=== PATIENT | male | born 1990 | race African-American/Black ===

== ENCOUNTER 2016-12-17 20:24 | Emergency (ER) | payer OTHER ==
[2016-12-17 21:10] LABS: BASO % 0.4 % (0.0-1.0); EOS % 0.2 % (0.0-3.0); LARGE UNSTAINED CELL # 0.1 K/mm3 (0.0-0.4); LARGE UNSTAINED CELL % 1.5 % (0.0-4.0); LYMPH # 3.1 K/mm3 (1.5-6.5); LYMPH % 44.9 % (24.0-44.0); MEAN CORPUSCULAR HGB CONC 34.4 g/dl (32.0-36.5); MEAN CORPUSCULAR VOLUME 81.2 fl (80.0-96.0); MONO # 0.3 K/mm3 (0.0-0.8); NEUTROPHILS # 3.4 K/mm3 (1.8-7.7); PLATELET COUNT, AUTOMATED 286 k/mm3 (150-450); RED CELL DISTRIBUTION WIDTH 12.7 % (11.5-14.5); WHITE BLOOD COUNT 6.9 K/mm3 (4.0-10.0)
[2016-12-17] MEDS ORDERED: LORazepam 2 MG/ML VIAL (J2060) As Ordered ONE (21:29)
[2016-12-17 21:30] LABS: AMPHETAMINES LEVEL URINE NEGATIVE (NEGATIVE); BENZODIAZEPINES URINE NEGATIVE (NEGATIVE); COCAINE METABOLITE URINE NEGATIVE (NEGATIVE); CONTROL LINE INT CTR LINE PRESENT; METHADONE URINE NEGATIVE (NEGATIVE); OPIATES URINE NEGATIVE (NEGATIVE); TRICYCLIC ANTIDEPRESS URINE NEGATIVE (NEGATIVE)
[2016-12-17 21:43] LABS: ANION GAP 10 MEQ/L (8-16); BLOOD UREA NITROGEN 11 MG/DL (7-18); CALCIUM LEVEL 9.2 MG/DL (8.5-10.1); CARBON DIOXIDE LEVEL 24 MEQ/L (21-32); CHLORIDE LEVEL 107 MEQ/L (98-107); CREATININE FOR GFR 1.25 MG/DL (0.70-1.30); FREE T4 1.05 NG/DL (0.76-1.46); GLOMERULAR FILTRATION RATE > 60.0 (>60); GLUCOSE, FASTING 105 MG/DL (70-105); POTASSIUM SERUM 3.3 MEQ/L (3.5-5.1); SODIUM LEVEL 141 MEQ/L (136-145)
[2016-12-17] MEDS ORDERED: POTASSIUM CHLORIDE 10 MEQ SR TABLET As Ordered ONE (21:56)
[2016-12-17] MEDS ORDERED: LISINOPRIL 10 MG TAB As Ordered ONE ×2 (21:56→22:48)
--- NOTE | 2016-12-17 22:10 | REPUSA ---
CLINICAL HISTORY: HTN. TECHNIQUE: Multiple axial brain CT scan sections were obtained from base to vertex without contrast a dministration. COMMENTS: The study shows normal configuration of sella turcica. There are no intra or extra-axial collections. There is no mass effect or midline shift. There is no evidence of hematoma formation. No hydrocephal us is present. No abnormal calcifications are noted. No significant abnormalities are seen either in the posterior fossa or supratentorial compartment. The sinuses and mastoid air cells are patent. IMPRESSION: No evidence of acute intracranial pathology. Thank you for your kind referral of this patient.
--- NOTE | 2016-12-17 22:58 | EDDOCDS ---
Physician Documentation [facility] Name: Martin Watson Age: 26 yrs Sex: Male : 1990 Arrival Date: 12/17/2016 Time: 20:24 Bed 17 Private MD: [facility] [place] Disposition: 12/17 22:32 Critical Care: Critical care not applicable. pc Disposition: 12/17/16 22:33 Discharged to Home/Self Care. Impression: Anxiety disorder, unspecified, Essential (primary) hypertension, Hypokalemia - mild, replaced. - Condition is Stable. - Discharge Instructions: Panic Attacks, Hypertension. - Prescriptions for Lisinopril 10 mg Oral Tablet - take 1 tablet by ORAL route at bedtime; 30 tablet. - Medication Reconciliation, Local Pharmacy Hours form. - Follow up: [facility]; When: 2 - 3 days; Reason: Recheck today's complaints, Continuance of care. - Problem is new. - Symptoms have improved. HPI: 20:56 This 26 yrs old Male presents to ER via Ambulance with complaints of pc Dizziness. 20:56 This 26 yrs old Male presents to ER via Ambulance with complaints of pc Dizziness. 20:56 The history is obtained from the patient. He says he is having an anxiety attack, that pc his BP is running high, he has dizziness chronically that is worse tonight and is hyperventilating, stating he feels his hands going numb. He has been told he has hypertension on the past by his PCP at [place] but has never been told to take meds. His only other visis to this ED in April 2016 he was noted to be hypertensive as well. He denies any chest pain, headaches, visual changes. He denies drug use or OTC usage. He says there is hypertension at an early age in his parents. The patient has not recently seen a physician. Historical: - Allergies: Amoxicillin; Bactrim; SULFA (SULFONAMIDES); - Home Meds: 1. Lexapro 10 mg Oral tab 1 tab once daily 2. prednisone 20 mg Oral tab 2 tabs once daily x5 days - PMHx: Bronchitis; Seasonal Allergies; Anxiety; - PSHx: left shoulder surgery; - The history from nurses notes was reviewed: and I agree with what is documented. - Social history: Smoking status: Patient states was never smoker of tobacco. No barriers to communication noted, The patient speaks fluent Latvian. - : The pt / caregiver states he / she is not on anticoagulants. Home medication list is obtained from the patient. - Hospitalizations: : No recent hospitalization is reported. - Exposure Risk Screening:: None identified. - Immunization history:: All immunizations up-to-date. - Family history: Not pertinent. - Social history:: the patient is a non-smoker, the patient does not drink alcohol. ROS: 20:56 All systems are negative except as listed. pc Exam: 20:56 General Appearance: no acute distress, alert, anxious. pc 20:56 EENT: normal eye inspection, ears, nose and throat normal, pharynx normal, mucous membranes moist 20:56 Neck: The exam reveals no acute abnormalities. ROM is normal and painless. No nuchal rigidity is noted.. 20:56 Respiratory: no respiratory distress, normal breath sounds, Respirations/effort: tachypnea. 20:56 CVS: regular pulse rate, regular rhythm, normal S1 and S2, no murmurs, strong peripheral pulses, normal capillary refill. 20:56 Abdomen: soft, non-tender, no organomegaly, normal bowel sounds. 20:56 Back: normal inspection. 20:56 Skin: skin color is normal, warm, dry, no rashes, no lesions. 20:56 Extremities: The extremities have a grossly normal appearance, are non-tender, without acute ROM abnormalities. 20:56 Neuro: oriented x 3, cranial nerves normal as tested, no motor deficits, no sensory deficits, normal gait. 20:56 Psych: mood is depressed, affect is flat. Vital Signs: 20:41 BP 178 / 103; Pulse 76; Resp 20; Temp 97.8(O); Pulse Ox 100% on R/A; Weight 107.95 kg / jmv 237.99 lbs (R); Height 69 in. (175.26 cm) (R); Pain 0/10; 21:29 BP 139 / 80 (auto/); pc 21:43 BP 142 / 91 (auto/); af2 21:43 Pulse 72 MON; Resp 18 S; Pulse Ox 98% on R/A; af2 22:36 BP 135 / 79; Pulse 73; Resp 18; Temp 98.3(O); Pulse Ox 95% on R/A; Pain 4/10; mdr 20:41 Body Mass Index 35.15 (107.95 kg, 175.26 cm) jmv 20:41 RN notified of BP jmv MDM: 20:54 IV Saline Lock ordered. pc 20:54 Information Security Officer/Pulse Ox/q 30 min VS ordered. pc 20:54 LORazepam 1 mg IVP once ordered. pc 20:55 CBC with Diff Ordered. EDMS 20:55 MED Profile Ordered. EDMS 20:55 TSH with Free T4 Ordered. EDMS 20:55 Drug Eval Toxicology ED Only Ordered. EDMS 20:55 Urinalysis Ordered. EDMS 20:55 CIP Ordered. EDMS 20:55 Troponin Ordered. EDMS 20:56 Chest, 1 View Ordered. EDMS 20:56 ECG WITH READING ER PHYS+CARDIAG ordered. EDMS 20:56 CT Head Without Contrast Ordered. EDMS 20:56 Differential Diagnosis: anxiety attack, hypertension, possibly anxiety related v pc essential. Plan: labs, EKG, imaging, meds. 21:31 CBC with Diff Reviewed. pc 21:31 Urinalysis Reviewed. pc 21:39 Test interpretation: EKG. pc 21:41 Drug Eval Toxicology ED Only Reviewed. pc 21:41 Urinalysis Reviewed. pc 21:45 Financial registration complete. zo 21:48 MED Profile Reviewed. pc 21:48 Troponin Reviewed. pc 21:48 Potassium Chloride Extended Release Tablet 40 mEq PO once ordered. pc 21:49 CIP Reviewed. pc 21:49 TSH with Free T4 Reviewed. pc 21:50 Lisinopril 10 mg PO once ordered. pc 21:56 MED Profile Reviewed. pc 21:56 TSH with Free T4 Reviewed. pc 21:56 CIP Reviewed. pc 21:56 Troponin Reviewed. pc 22:04 [facility] [place] Agreement was scanned into [employer] and attached to record. zo 22:32 Data reviewed: old medical records, vital signs, nurses notes, EKG(s), lab test pc results, all radiology studies and available results. Test interpretation: LAB - all labs as ordered have been reviewed, interpreted and considered in the overall management of the clinical presentation; X-RAY - interpreted by me, 1 view chest no acute disease, interpreted by Radiologist and personally reviewed, Head CT; no acute disease. The patient has been re-examined and re-evaluated. The patient's symptoms have markedly improved after treatment, with his BP 142/91 with only anxiolytics. Disposition: The historical points, examination findings, and any diagnostic results supporting the provided diagnosis, were discussed with the patient or legal guardian. The need for outpatient follow up with the provider listed on their discharge instructions was discussed. They were encouraged to return to [facility], or the nearest ED, if symptoms worsen/persist, or for any other questions/concerns. EC:39 Rate is 67 beats/min. Rhythm is regular, Normal Sinus Rhythm. QRS [place] is Normal. NV pc interval is normal. QRS interval is normal. QT interval is normal. No Q waves. T waves are Normal. ST Segment is elevated in leads I, II, aVL, V2, V3, V4, V5, V6, <1mm. Clinical impression: Normal Sinus Rhythm and ST-T changes consistent with early repolarization. Administered Medications: 21:32 Drug: LORazepam 1 mg [lorazepam 2 mg/mL injection solution (0.5 mL)] Route: IVP; Site: nn1 left antecubital; 22:01 Drug: Potassium Chloride 40 mEq [potassium chloride ER 10 mEq tablet,extended release af2 (4 tabs)] Route: PO; 22:01 Drug: Lisinopril 10 mg [lisinopril 10 mg tablet (1 tabs)] Route: PO; af2 Signatures: Dispatcher [employer] EDMS Ham Parnell MD MD pc Olin, Zoeann zo [place]ulton, Amber, RN RN af2 Donn Crooks RN nn1 The chart was reviewed and I authenticate all verbal orders and agree with the evaluation and treatment provided.Attachments: 22:04 [facility] Payment Agreement zo MTDD
--- NOTE | 2016-12-17 22:59 | EDDOCDS ---
Nurse's Notes [facility] Name: Martin Watson Age: 26 yrs Sex: Male : 1990 Arrival Date: 12/17/2016 Time: 20:24 Bed 17 Private MD: Orly BORGES Diagnosis: Anxiety disorder, unspecified;Essential (primary) hypertension;Hypokalemia-mild, replaced Presentation: 12/17 20:31 Presenting complaint: EMS states: lightheaded and dizziness, constant problem- far kas2 worse than normal today. Suicide/Homicide risk assessment- the patient denies having any suicidal and/or homicidal ideations and does not present with any other emotional, behavioral or mental health complaints. 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 Transition of care: patient was not received from another setting of care. 20:31 Acuity: LONA Level 3 kas2 20:31 Method Of Arrival: Ambulance kas2 22:58 Adult Sepsis Screening: The patient does not have new or worsening altered mentation. af2 Patient's respiratory rate is less than 22. Systolic blood pressure is greater than 100. Patient has a qSOFA score of 0- Negative Sepsis Screen. Triage Assessment: 20:35 General: Appears in no apparent distress, comfortable, Behavior is appropriate for age, af2 cooperative. Pain: Denies pain. HIV screening NA for this visit Offered previously. The patient is triaged at the bedside. See Assessment in Nurses Notes section of ED record. Neurological: Level of Consciousness is awake, alert, obeys commands, Oriented to person, place, time, Reports dizziness, weakness. Cardiovascular: Heart tones S1 S2 present. Respiratory: Airway is patent Respiratory effort is even, unlabored. Derm: Skin is normal. Historical: - Allergies: Amoxicillin; Bactrim; SULFA (SULFONAMIDES); - Home Meds: 1. Lexapro 10 mg Oral tab 1 tab once daily 2. prednisone 20 mg Oral tab 2 tabs once daily x5 days - PMHx: Bronchitis; Seasonal Allergies; Anxiety; - PSHx: left shoulder surgery; - The history from nurses notes was reviewed: and I agree with what is documented. - Social history: Smoking status: Patient states was never smoker of tobacco. No barriers to communication noted, The patient speaks fluent Croatian. - : The pt / caregiver states he / she is not on anticoagulants. Home medication list is obtained from the patient. - Hospitalizations: : No recent hospitalization is reported. - Exposure Risk Screening:: None identified. - Immunization history:: All immunizations up-to-date. - Family history: Not pertinent. - Social history:: the patient is a non-smoker, the patient does not drink alcohol. Screenin:49 Screening information is obtained from the patient. Fall risk: No risks identified. af2 Assistance ADL's: requires no assistance with activities of daily living. Abuse/DV Screen: The patient / caregiver reports he/she is: not in a situation that causes fear, pain or injury. Nutritional screening: No deficits noted. Advance Directives: Currently, there is no health care proxy. home support is adequate. Assessment: 21:49 General: Appears in no apparent distress, Behavior is cooperative. Neurological: Level af2 of Consciousness is awake, alert, obeys commands, Oriented to person, place, time. Cardiovascular: Rhythm is sinus rhythm No ectopy. Respiratory: Airway is patent Respiratory effort is even, unlabored. Derm: Skin is normal. 22:04 General: pt states "I forgot to tell you I'm taking Prednisone for a rash right now." af2 Provider updated.. 22:56 General: Appears in no apparent distress, Behavior is appropriate for age, cooperative. af2 Neurological: Level of Consciousness is awake, alert, obeys commands, Oriented to person, place, time. Cardiovascular: Rhythm is sinus rhythm No ectopy. Respiratory: Airway is patent Respiratory effort is even, unlabored. Derm: Skin is normal. Vital Signs: 20:41 BP 178 / 103; Pulse 76; Resp 20; Temp 97.8(O); Pulse Ox 100% on R/A; Weight 107.95 kg jmv (R); Height 69 in. (175.26 cm) (R); Pain 0/10; 21:29 BP 139 / 80 (auto/); pc 21:43 BP 142 / 91 (auto/); af2 21:43 Pulse 72 MON; Resp 18 S; Pulse Ox 98% on R/A; af2 22:36 BP 135 / 79; Pulse 73; Resp 18; Temp 98.3(O); Pulse Ox 95% on R/A; Pain 4/10; mdr 20:41 Body Mass Index 35.15 (107.95 kg, 175.26 cm) jmv 20:41 RN notified of BP jmv Vitals: 20:37 Log In Time N/A - ambulance arrival. af2 ED Course: 20:28 Pepper Mata RN is Primary Nurse. [facility] 20:28 Patient visited by Rosetta Rangel, Electronic Transaction Implementer. [facility] 20:28 [facility] is Private Physician. [facility] 20:28 Patient moved to [facility] 20:32 Triage Initiated kas2 20:37 Patient visited by Pepper Mata RN. af2 20:42 Pt greeted and oriented to ED. Patient advised of names of staff involved in care, [facility] location of call jack, wait times and NPO status. Patient has correct armband on for positive identification. Placed in gown. Bed in low position. Side rails up X2. aquatic director on. Pulse ox on. NIBP on. 20:43 Patient visited by Bull Winn PCA. jmv 20:48 Ham Parnell MD is Attending Physician. pc 20:52 Patient visited by Ham Parnell MD. pc 21:04 Patient visited by Bull Winn PCA. jmv 21:04 Troponin Sent. jmv 21:04 CIP Sent. jmv 21:04 Urinalysis Sent. jmv 21:04 Drug Eval Toxicology ED Only Sent. jmv 21:04 TSH with Free T4 Sent. jmv 21:04 MED Profile Sent. jmv 21:04 CBC with Diff Sent. jmv 21:35 EKG done. (by ED staff). Reviewed by Ham Parnell MD. jmv 21:36 Patient visited by Bull Winn PCA. jmv 21:50 Patient visited by Pepper Mata RN. af2 22:04 [facility] Payment Agreement was scanned into [employer] and attached to record. zo 22:05 Patient visited by Pepper Mata RN. af2 22:33 [facility] is Referral Physician. pc 22:39 Patient visited by Juan Carlos Martinez PCA. mdr 22:56 Maintain field IV. Dressing intact. Good blood return noted. Gauge & site: #20G to left af2 ac. No procedures done that require assistance. 22:57 Discontinued IV lock intact, bleeding controlled, pressure dressing applied, No af2 redness/swelling at site. 22:58 The patient / caregiver is instructed regarding the plan of care and ED course. af2 Administered Medications: 21:32 Drug: LORazepam 1 mg [lorazepam 2 mg/mL injection solution (0.5 mL)] Route: IVP; Site: nn1 left antecubital; 22:01 Drug: Potassium Chloride 40 mEq [potassium chloride ER 10 mEq tablet,extended release af2 (4 tabs)] Route: PO; 22:01 Drug: Lisinopril 10 mg [lisinopril 10 mg tablet (1 tabs)] Route: PO; af2 Order Results: Lab Order: CBC with Diff; SPEC'M 12/17/16 21:01 Test: WHITE BLOOD COUNT; Value: 6.9; Range: 4.0-10.0; Units: K/mm3; Status: F Test: RED BLOOD COUNT; Value: 5.64; Range: 4.30-6.10; Units: M/mm3; Status: F Test: HEMOGLOBIN; Value: 15.8; Range: 14.0-18.0; Units: g/dl; Status: F Test: HEMATOCRIT; Value: 45.8; Range: 42.0-52.0; Units: %; Status: F Test: MEAN CORPUSCULAR VOLUME; Value: 81.2; Range: 80.0-96.0; Units: fl; Status: F Test: MEAN CORPUSCULAR HEMOGLOBIN; Value: 28.0; Range: 27.0-33.0; Units: pg; Status: F Test: MEAN CORPUSCULAR HGB CONC; Value: 34.4; Range: 32.0-36.5; Units: g/dl; Status: F Test: RED CELL DISTRIBUTION WIDTH; Value: 12.7; Range: 11.5-14.5; Units: %; Status: F Test: PLATELET COUNT, AUTOMATED; Value: 286; Range: 150-450; Units: k/mm3; Status: F Test: NEUTROPHILS %; Value: 49.0; Range: 36.0-66.0; Units: %; Status: F Test: LYMPH %; Value: 44.9; Range: 24.0-44.0; Abnormal: Above high normal; Units: %; Status: F Test: MONO %; Value: 4.0; Range: 0.0-5.0; Units: %; Status: F Test: EOS %; Value: 0.2; Range: 0.0-3.0; Units: %; Status: F Test: BASO %; Value: 0.4; Range: 0.0-1.0; Units: %; Status: F Test: LARGE UNSTAINED CELL %; Value: 1.5; Range: 0.0-4.0; Units: %; Status: F Test: NEUTROPHILS #; Value: 3.4; Range: 1.8-7.7; Units: K/mm3; Status: F Test: LYMPH #; Value: 3.1; Range: 1.5-6.5; Units: K/mm3; Status: F Test: MONO #; Value: 0.3; Range: 0.0-0.8; Units: K/mm3; Status: F Test: EOS #; Value: 0.0; Range: 0.0-0.50; Units: K/mm3; Status: F Test: BASO #; Value: 0.0; Range: 0.0-0.2; Units: K/mm3; Status: F Test: LARGE UNSTAINED CELL #; Value: 0.1; Range: 0.0-0.4; Units: K/mm3; Status: F Lab Order: [facility]; [facility]'M 12/17/16 21:01 Test: GLUCOSE, FASTING; Value: 105; Range: 70-105; Units: MG/DL; Status: F Test: BLOOD UREA NITROGEN; Value: 11; Range: 7-18; Units: MG/DL; Status: F Test: CREATININE FOR GFR; Value: 1.25; Range: 0.70-1.30; Units: MG/DL; Status: F Test: GLOMERULAR FILTRATION RATE; Value: > 60.0; Range: >60; Status: F Test: SODIUM LEVEL; Value: 141; Range: 136-145; Units: MEQ/L; Status: F Test: POTASSIUM SERUM; Value: 3.3; Range: 3.5-5.1; Abnormal: Below low normal; Units: MEQ/L; Status: F Test: CHLORIDE LEVEL; Value: 107; Range: 98-107; Units: MEQ/L; Status: F Test: CARBON DIOXIDE LEVEL; Value: 24; Range: 21-32; Units: MEQ/L; Status: F Test: ANION GAP; Value: 10; Range: 8-16; Units: MEQ/L; Status: F Test: CALCIUM LEVEL; Value: 9.2; Range: 8.5-10.1; Units: MG/DL; Status: F Test Note: ; Units are mL/min/1.73 m2 Chronic Kidney Disease Staging per NKF: Stage I & II GFR >=60 Normal to Mildly Decreased Stage III GFR 30-59 Moderately Decreased Stage IV GFR 15-29 Severely Decreased Stage V GFR <15 Very Little GFR Left ESRD GFR <15 on HANDSTITCHING MACHINE ARMHOLE FELLER Lab Order: TSH with Free T4; SPEC'M 12/17/16 21:01 Test: THYROID STIMULATING HORMONE; Value: 0.616; Range: 0.358-3.740; Units: uIU/ML; Status: F Test: FREE T4; Value: 1.05; Range: 0.76-1.46; Units: NG/DL; Status: F Lab Order: Drug Eval Toxicology ED Only; SPEC'M 12/17/16 21:01 Test: AMPHETAMINES LEVEL URINE; Value: NEGATIVE; Range: NEGATIVE; Status: F Test: BARBITURATES URINE; Value: NEGATIVE; Range: NEGATIVE; Status: F Test: BENZODIAZEPINES URINE; Value: NEGATIVE; Range: NEGATIVE; Status: F Test: CANNABINOIDS URINE; Value: NEGATIVE; Range: NEGATIVE; Status: F Test: COCAINE METABOLITE URINE; Value: NEGATIVE; Range: NEGATIVE; Status: F Test: METHADONE URINE; Value: NEGATIVE; Range: NEGATIVE; Status: F Test: OPIATES URINE; Value: NEGATIVE; Range: NEGATIVE; Status: F Test: TRICYCLIC ANTIDEPRESS URINE; Value: NEGATIVE; Range: NEGATIVE; Status: F Test Note: ; ALL PRESUMPTIVE POSITIVE FINDINGS ARE UNCONFIRMED NORMAL VALUES THRESHOLD IN NG/ML AMPHETAMINES 1000 METHAMPHETAMINES 1000 BARBITURATES 300 BENZODIAZEPINES 300 CANNABINOIDS (THC) 50 COCAINE METABOLITE 300 METHADONE 300 OPIATES 300 PHENCYCLIDINE 25 TRICYCLIC ANTIDEPRESSANTS 1000 RESULTS ARE FOR MEDICAL PURPOSES ONLY. ALL URINE SPECIMENS WILL BE SAVED FOR 3 DAYS. IF CONFIRMATION OF A PRESUMPTIVE POSTIVE SCREEN RESULT IS DESIRED, CALL CHEMISTRY ([phone]) AND REQUEST URINE TO BE SENT TO REFERENCE LAB. FOR A LIST OF CLOSELY RELATED COMPOUNDS PLEASE CALL THE LAB. Lab Order: Urinalysis; SPEC'M 12/17/16 21:01 Test: APPEARANCE, URINE; Value: CLEAR; Range: CLEAR; Status: F Test: COLOR, URINE; Value: STRAW; Range: YELLOW; Status: F Test: PH,URINE; Value: 6.0; Range: 5.0-9.0; Units: UNITS; Status: F Test: SPECIFIC GRAVITY URINE AUTO; Value: 1.003; Range: 1.002-1.035; Status: F Test: PROTEIN, URINE AUTO; Value: NEGATIVE; Range: NEGATIVE; Units: mg/dL; Status: F Test: GLUCOSE, URINE (UA) AUTO; Value: NEGATIVE; Range: NEGATIVE; Units: mg/dL; Status: F Test: KETONE, URINE AUTO; Value: NEGATIVE; Range: NEGATIVE; Units: mg/dL; Status: F Test: UROBILINOGEN, URINE AUTO; Value: 0.2; Range: 0.0-2.0; Units: mg/dL; Status: F Test: BILIRUBIN, URINE AUTO; Value: NEGATIVE; Range: NEGATIVE; Status: F Test: NITRITE, URINE AUTO; Value: NEGATIVE; Range: NEGATIVE; Status: F Test: LEUKOCYTE ESTERASE, URINE AUTO; Value: NEGATIVE; Range: NEGATIVE; Status: F Test: BLOOD, URINE BLOOD; Value: NEGATIVE; Range: NEGATIVE; Status: F Test: WBC, URINE AUTO; Value: 1; Range: 0-3; Units: /HPF; Status: F Test: RBC, URINE AUTO; Value: 0; Range: 0-3; Units: /HPF; Status: F Test: BACTERIA, URINE AUTO; Value: NEGATIVE; Range: NEGATIVE; Status: F Test: SQUAMOUS EPITHELIAL CELL UR AU; Value: 0; Range: 0-6; Units: /HPF; Status: F Test: HYALINE CAST, URINE AUTO; Value: 0; Range: 0-1; Units: /LPF; Status: F Lab Order: CIP; SPEC'M 12/17/16 21:01 Test: CPK CREATINE PHOSPHOKINASE; Value: 261; Range: 39-308; Units: U/L; Status: F Test: CK-MB VALUE MASS; Value: 1.9; Range: 0.0-3.6; Units: NG/ML; Status: F Test: MB/CK RELATIVE INDEX; Value: 0.72; Range: < OR =4; Status: F Test Note: ; DIAGNOSIS CRITERIA MMB ng/ml Relative Index (RI) NON-AMI < or = 5 N/A HUIZAR ZONE > 5 < or = 4 AMI > 5 > 4 Lab Order: Troponin; [facility] 12/17/16 21:01 Test: TROPONIN I; Value: < 0.02; Range: < 0.10; Units: NG/ML; Status: F Test Note: ; Troponin I Reference Interval for [employer] LOCI: 99th Percentile= 0.00-0.045 ng/ml Risk Stratification: <= 0.10 ng/ml Decreased Risk for Adverse Clinical Events. 0.10-1.50 ng/ml Increased Risk for Adverse Clinical Events. Evaluation of additional criterion and/or repeat testing in 2-6 hours is suggested to rule out myocardial damage. >= 1.50 ng/ml Indicative of Myocardial Injury. Outcome: 22:33 Discharge ordered by Provider. pc 22:57 Discharge Assessment: Patient awake, alert and oriented x 3. No cognitive and/or af2 functional deficits noted. Patient verbalized understanding of disposition instructions. patient administered narcotics - no. The following High Risk Discharge criteria are identified: None. Discharged to home ambulatory. Condition: stable. Discharge instructions given to patient, Instructed on discharge instructions, follow up and referral plans. medication usage, Demonstrated understanding of instructions, medications, Pt was receptive of discharge instructions/ teaching. CT Study completed. Property :Personal belongings accompany Pt. 22:58 Patient left the ED. af2 Signatures: Ham Parnell MD MD pc Olin, Zoeann zo Mitchell, Jessie, Electronic Transaction Implementer Unit Pepper Elias,KEN RN af2 Donn CrooksRN RN nn1 Juan Carlos Martinez, BLACK PULLER BLACK PULLER Marlee Damico RN RN iain2 Bull Winn, BLACK PULLER BLACK PULLER jmv MTDD
--- NOTE | 2016-12-18 06:35 | ECGEPIP ---
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
--- NOTE | 2016-12-18 13:49 | REP ---
AP PORTABLE CHEST: 12/17/2016. Comparison: Chest x-ray 04/23/2016. Clinical history: Hypertension. Findings: The lung [place] are well inflated. There was no pleural effusion, lateral pleural thickening or dense consolidation. Heart size not enlarged for portable technique. Airway midline. The aorta is normal. No mediastinal or hilar abnormalities. Bones intact. Impression: 1. Negative portable chest. Signed by Daniel Gr MD 12/18/2016 07:22 P
--- NOTE | 2016-12-19 23:59 | EDDOCDS ---
Nurse's Notes [facility] Name: Martin Orozco Age: 26 yrs Sex: Male : 1990 Arrival Date: 12/17/2016 Time: 20:24 Bed 17 Private MD: Orly BORGES Diagnosis: Anxiety disorder, unspecified;Essential (primary) hypertension;Hypokalemia-mild, replaced Presentation: 12/17 20:31 Presenting complaint: EMS states: lightheaded and dizziness, constant problem- far kas2 worse than normal today. Suicide/Homicide risk assessment- the patient denies having any suicidal and/or homicidal ideations and does not present with any other emotional, behavioral or mental health complaints. 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 Transition of care: patient was not received from another setting of care. 20:31 Acuity: LONA Level 3 kas2 20:31 Method Of Arrival: Ambulance kas2 22:58 Adult Sepsis Screening: The patient does not have new or worsening altered mentation. af2 Patient's respiratory rate is less than 22. Systolic blood pressure is greater than 100. Patient has a qSOFA score of 0- Negative Sepsis Screen. Triage Assessment: 20:35 General: Appears in no apparent distress, comfortable, Behavior is appropriate for age, af2 cooperative. Pain: Denies pain. HIV screening NA for this visit Offered previously. The patient is triaged at the bedside. See Assessment in Nurses Notes section of ED record. Neurological: Level of Consciousness is awake, alert, obeys commands, Oriented to person, place, time, Reports dizziness, weakness. Cardiovascular: Heart tones S1 S2 present. Respiratory: Airway is patent Respiratory effort is even, unlabored. Derm: Skin is normal. Historical: - Allergies: Amoxicillin; Bactrim; SULFA (SULFONAMIDES); - Home Meds: 1. Lexapro 10 mg Oral tab 1 tab once daily 2. prednisone 20 mg Oral tab 2 tabs once daily x5 days - PMHx: Bronchitis; Seasonal Allergies; Anxiety; - PSHx: left shoulder surgery; - The history from nurses notes was reviewed: and I agree with what is documented. - Social history: Smoking status: Patient states was never smoker of tobacco. No barriers to communication noted, The patient speaks fluent Urdu. - : The pt / caregiver states he / she is not on anticoagulants. Home medication list is obtained from the patient. - Hospitalizations: : No recent hospitalization is reported. - Exposure Risk Screening:: None identified. - Immunization history:: All immunizations up-to-date. - Family history: Not pertinent. - Social history:: the patient is a non-smoker, the patient does not drink alcohol. Screenin:49 Screening information is obtained from the patient. Fall risk: No risks identified. af2 Assistance ADL's: requires no assistance with activities of daily living. Abuse/DV Screen: The patient / caregiver reports he/she is: not in a situation that causes fear, pain or injury. Nutritional screening: No deficits noted. Advance Directives: Currently, there is no health care proxy. home support is adequate. Assessment: 21:49 General: Appears in no apparent distress, Behavior is cooperative. Neurological: Level af2 of Consciousness is awake, alert, obeys commands, Oriented to person, place, time. Cardiovascular: Rhythm is sinus rhythm No ectopy. Respiratory: Airway is patent Respiratory effort is even, unlabored. Derm: Skin is normal. 22:04 General: pt states "I forgot to tell you I'm taking Prednisone for a rash right now." af2 Provider updated.. 22:56 General: Appears in no apparent distress, Behavior is appropriate for age, cooperative. af2 Neurological: Level of Consciousness is awake, alert, obeys commands, Oriented to person, place, time. Cardiovascular: Rhythm is sinus rhythm No ectopy. Respiratory: Airway is patent Respiratory effort is even, unlabored. Derm: Skin is normal. Vital Signs: 20:41 BP 178 / 103; Pulse 76; Resp 20; Temp 97.8(O); Pulse Ox 100% on R/A; Weight 107.95 kg jmv (R); Height 69 in. (175.26 cm) (R); Pain 0/10; 21:29 BP 139 / 80 (auto/); pc 21:43 BP 142 / 91 (auto/); af2 21:43 Pulse 72 MON; Resp 18 S; Pulse Ox 98% on R/A; af2 22:36 BP 135 / 79; Pulse 73; Resp 18; Temp 98.3(O); Pulse Ox 95% on R/A; Pain 4/10; mdr 20:41 Body Mass Index 35.15 (107.95 kg, 175.26 cm) jmv 20:41 RN notified of BP jmv Vitals: 20:37 Log In Time N/A - ambulance arrival. af2 ED Course: 20:28 Pepper Mata RN is Primary Nurse. [facility] 20:28 Patient visited by Rosetta Rangel, Sheet Metal Worker Apprentice. [facility] 20:28 [facility] is Private Physician. [facility] 20:28 Patient moved to [facility] 20:32 Triage Initiated kas2 20:37 Patient visited by Pepper Mata RN. af2 20:42 Pt greeted and oriented to ED. Patient advised of names of staff involved in care, [facility] location of call jack, wait times and NPO status. Patient has correct armband on for positive identification. Placed in gown. Bed in low position. Side rails up X2. quality assurance monitor final on. Pulse ox on. NIBP on. 20:43 Patient visited by Bull Winn PCA. jmv 20:48 Ham Parnell MD is Attending Physician. pc 20:52 Patient visited by Ham Parnell MD. pc 21:04 Patient visited by Bull Winn PCA. jmv 21:04 Troponin Sent. jmv 21:04 CIP Sent. jmv 21:04 Urinalysis Sent. jmv 21:04 Drug Eval Toxicology ED Only Sent. jmv 21:04 TSH with Free T4 Sent. jmv 21:04 MED Profile Sent. jmv 21:04 CBC with Diff Sent. jmv 21:35 EKG done. (by ED staff). Reviewed by aHm Parnell MD. jmv 21:36 Patient visited by Bull Winn PCA. jmv 21:50 Patient visited by Pepper Mata RN. af2 22:04 [facility] Payment Agreement was scanned into [id number] and attached to record. zo 22:05 Patient visited by Pepper Mata RN. af2 22:33 [facility] is Referral Physician. pc 22:39 Patient visited by Juan Carlos Martinez PCA. mdr 22:56 Maintain field IV. Dressing intact. Good blood return noted. Gauge & site: #20G to left af2 ac. No procedures done that require assistance. 22:57 Discontinued IV lock intact, bleeding controlled, pressure dressing applied, No af2 redness/swelling at site. 22:58 The patient / caregiver is instructed regarding the plan of care and ED course. af2 22:59 CT Head Without Contrast Returned. EDMS 02 06:44 EKG-ADULT Returned. EDMS 13:56 Chest, 1 View Returned. EDMS 02 10:25 ECG/EKG was scanned into [id number] and attached to record. gb Administered Medications: 12/17 21:32 Drug: LORazepam 1 mg [lorazepam 2 mg/mL injection solution (0.5 mL)] Route: IVP; Site: nn1 left antecubital; 22:01 Drug: Potassium Chloride 40 mEq [potassium chloride ER 10 mEq tablet,extended release af2 (4 tabs)] Route: PO; 22:01 Drug: Lisinopril 10 mg [lisinopril 10 mg tablet (1 tabs)] Route: PO; af2 Order Results: Lab Order: CBC with Diff; SPEC'M 12/17/16 21:01 Test: WHITE BLOOD COUNT; Value: 6.9; Range: 4.0-10.0; Units: K/mm3; Status: F Test: RED BLOOD COUNT; Value: 5.64; Range: 4.30-6.10; Units: M/mm3; Status: F Test: HEMOGLOBIN; Value: 15.8; Range: 14.0-18.0; Units: g/dl; Status: F Test: HEMATOCRIT; Value: 45.8; Range: 42.0-52.0; Units: %; Status: F Test: MEAN CORPUSCULAR VOLUME; Value: 81.2; Range: 80.0-96.0; Units: fl; Status: F Test: MEAN CORPUSCULAR HEMOGLOBIN; Value: 28.0; Range: 27.0-33.0; Units: pg; Status: F Test: MEAN CORPUSCULAR HGB CONC; Value: 34.4; Range: 32.0-36.5; Units: g/dl; Status: F Test: RED CELL DISTRIBUTION WIDTH; Value: 12.7; Range: 11.5-14.5; Units: %; Status: F Test: PLATELET COUNT, AUTOMATED; Value: 286; Range: 150-450; Units: k/mm3; Status: F Test: NEUTROPHILS %; Value: 49.0; Range: 36.0-66.0; Units: %; Status: F Test: LYMPH %; Value: 44.9; Range: 24.0-44.0; Abnormal: Above high normal; Units: %; Status: F Test: MONO %; Value: 4.0; Range: 0.0-5.0; Units: %; Status: F Test: EOS %; Value: 0.2; Range: 0.0-3.0; Units: %; Status: F Test: BASO %; Value: 0.4; Range: 0.0-1.0; Units: %; Status: F Test: LARGE UNSTAINED CELL %; Value: 1.5; Range: 0.0-4.0; Units: %; Status: F Test: NEUTROPHILS #; Value: 3.4; Range: 1.8-7.7; Units: K/mm3; Status: F Test: LYMPH #; Value: 3.1; Range: 1.5-6.5; Units: K/mm3; Status: F Test: MONO #; Value: 0.3; Range: 0.0-0.8; Units: K/mm3; Status: F Test: EOS #; Value: 0.0; Range: 0.0-0.50; Units: K/mm3; Status: F Test: BASO #; Value: 0.0; Range: 0.0-0.2; Units: K/mm3; Status: F Test: LARGE UNSTAINED CELL #; Value: 0.1; Range: 0.0-0.4; Units: K/mm3; Status: F Lab Order: [facility]; SPEC'M 12/17/16 21:01 Test: GLUCOSE, FASTING; Value: 105; Range: 70-105; Units: MG/DL; Status: F Test: BLOOD UREA NITROGEN; Value: 11; Range: 7-18; Units: MG/DL; Status: F Test: CREATININE FOR GFR; Value: 1.25; Range: 0.70-1.30; Units: MG/DL; Status: F Test: GLOMERULAR FILTRATION RATE; Value: > 60.0; Range: >60; Status: F Test: SODIUM LEVEL; Value: 141; Range: 136-145; Units: MEQ/L; Status: F Test: POTASSIUM SERUM; Value: 3.3; Range: 3.5-5.1; Abnormal: Below low normal; Units: MEQ/L; Status: F Test: CHLORIDE LEVEL; Value: 107; Range: 98-107; Units: MEQ/L; Status: F Test: CARBON DIOXIDE LEVEL; Value: 24; Range: 21-32; Units: MEQ/L; Status: F Test: ANION GAP; Value: 10; Range: 8-16; Units: MEQ/L; Status: F Test: CALCIUM LEVEL; Value: 9.2; Range: 8.5-10.1; Units: MG/DL; Status: F Test Note: ; Units are mL/min/1.73 m2 Chronic Kidney Disease Staging per NKF: Stage I & II GFR >=60 Normal to Mildly Decreased Stage III GFR 30-59 Moderately Decreased Stage IV GFR 15-29 Severely Decreased Stage V GFR <15 Very Little GFR Left ESRD GFR <15 on BELT SPLICER Lab Order: TSH with Free T4; SPEC'M 12/17/16 21:01 Test: THYROID STIMULATING HORMONE; Value: 0.616; Range: 0.358-3.740; Units: uIU/ML; Status: F Test: FREE T4; Value: 1.05; Range: 0.76-1.46; Units: NG/DL; Status: F Lab Order: Drug Eval Toxicology ED Only; SPEC'M 12/17/16 21:01 Test: AMPHETAMINES LEVEL URINE; Value: NEGATIVE; Range: NEGATIVE; Status: F Test: BARBITURATES URINE; Value: NEGATIVE; Range: NEGATIVE; Status: F Test: BENZODIAZEPINES URINE; Value: NEGATIVE; Range: NEGATIVE; Status: F Test: CANNABINOIDS URINE; Value: NEGATIVE; Range: NEGATIVE; Status: F Test: COCAINE METABOLITE URINE; Value: NEGATIVE; Range: NEGATIVE; Status: F Test: METHADONE URINE; Value: NEGATIVE; Range: NEGATIVE; Status: F Test: OPIATES URINE; Value: NEGATIVE; Range: NEGATIVE; Status: F Test: TRICYCLIC ANTIDEPRESS URINE; Value: NEGATIVE; Range: NEGATIVE; Status: F Test Note: ; ALL PRESUMPTIVE POSITIVE FINDINGS ARE UNCONFIRMED NORMAL VALUES THRESHOLD IN NG/ML AMPHETAMINES 1000 METHAMPHETAMINES 1000 BARBITURATES 300 BENZODIAZEPINES 300 CANNABINOIDS (THC) 50 COCAINE METABOLITE 300 METHADONE 300 OPIATES 300 PHENCYCLIDINE 25 TRICYCLIC ANTIDEPRESSANTS 1000 RESULTS ARE FOR MEDICAL PURPOSES ONLY. ALL URINE SPECIMENS WILL BE SAVED FOR 3 DAYS. IF CONFIRMATION OF A PRESUMPTIVE POSTIVE SCREEN RESULT IS DESIRED, CALL CHEMISTRY ([phone]) AND REQUEST URINE TO BE SENT TO REFERENCE LAB. FOR A LIST OF CLOSELY RELATED COMPOUNDS PLEASE CALL THE LAB. Lab Order: Urinalysis; SPEC'M 12/17/16 21:01 Test: APPEARANCE, URINE; Value: CLEAR; Range: CLEAR; Status: F Test: COLOR, URINE; Value: STRAW; Range: YELLOW; Status: F Test: PH,URINE; Value: 6.0; Range: 5.0-9.0; Units: UNITS; Status: F Test: SPECIFIC GRAVITY URINE AUTO; Value: 1.003; Range: 1.002-1.035; Status: F Test: PROTEIN, URINE AUTO; Value: NEGATIVE; Range: NEGATIVE; Units: mg/dL; Status: F Test: GLUCOSE, URINE (UA) AUTO; Value: NEGATIVE; Range: NEGATIVE; Units: mg/dL; Status: F Test: KETONE, URINE AUTO; Value: NEGATIVE; Range: NEGATIVE; Units: mg/dL; Status: F Test: UROBILINOGEN, URINE AUTO; Value: 0.2; Range: 0.0-2.0; Units: mg/dL; Status: F Test: BILIRUBIN, URINE AUTO; Value: NEGATIVE; Range: NEGATIVE; Status: F Test: NITRITE, URINE AUTO; Value: NEGATIVE; Range: NEGATIVE; Status: F Test: LEUKOCYTE ESTERASE, URINE AUTO; Value: NEGATIVE; Range: NEGATIVE; Status: F Test: BLOOD, URINE BLOOD; Value: NEGATIVE; Range: NEGATIVE; Status: F Test: WBC, URINE AUTO; Value: 1; Range: 0-3; Units: /HPF; Status: F Test: RBC, URINE AUTO; Value: 0; Range: 0-3; Units: /HPF; Status: F Test: BACTERIA, URINE AUTO; Value: NEGATIVE; Range: NEGATIVE; Status: F Test: SQUAMOUS EPITHELIAL CELL UR AU; Value: 0; Range: 0-6; Units: /HPF; Status: F Test: HYALINE CAST, URINE AUTO; Value: 0; Range: 0-1; Units: /LPF; Status: F Lab Order: CIP; SPEC'M 12/17/16 21:01 Test: CPK CREATINE PHOSPHOKINASE; Value: 261; Range: 39-308; Units: U/L; Status: F Test: CK-MB VALUE MASS; Value: 1.9; Range: 0.0-3.6; Units: NG/ML; Status: F Test: MB/CK RELATIVE INDEX; Value: 0.72; Range: < OR =4; Status: F Test Note: ; DIAGNOSIS CRITERIA MMB ng/ml Relative Index (RI) NON-AMI < or = 5 N/A HUIZAR ZONE > 5 < or = 4 AMI > 5 > 4 Lab Order: Troponin; SPEC'M 12/17/16 21:01 Test: TROPONIN I; Value: < 0.02; Range: < 0.10; Units: NG/ML; Status: F Test Note: ; Troponin I Reference Interval for [employer] LOCI: 99th Percentile= 0.00-0.045 ng/ml Risk Stratification: <= 0.10 ng/ml Decreased Risk for Adverse Clinical Events. 0.10-1.50 ng/ml Increased Risk for Adverse Clinical Events. Evaluation of additional criterion and/or repeat testing in 2-6 hours is suggested to rule out myocardial damage. >= 1.50 ng/ml Indicative of Myocardial Injury. Radiology Order: EKG-ADULT Test: EKG-ADULT REASON FOR EXAMINATION: HTN; Stationary ECG Study; [facility] - ED; ; Test Date: 2016-12-17; Pat Name: MARTIN OROZCO Department:; Room: -; Gender: Calibration Checker: ; : 1990 Requested By: Ham Dubois; Order Number: [id number] Reading MD: Derian Elias; Measurements; Intervals [place]; Rate: 67 P: 31; IA: 206 QRS: 22; QRSD: 108 T: 24; QT: 386; QTc: 408; Interpretive Statements; SINUS RHYTHM; NONSPECIFIC ST T WAVE CHANGES; ; CW 04/23/16 - SIMILAR; Electronically Signed On 12-18-2016 6:34:50 EST by Derian Elias; Radiology Order: Chest, 1 View Test: Chest, 1 View REASON FOR EXAMINATION: HTN; AP PORTABLE CHEST: 12/17/2016.; ; Comparison: Chest x-ray 04/23/2016.; ; Clinical history: Hypertension.; ; Findings: The lung shelton are well inflated. There was no pleural effusion,; lateral pleural thickening or dense consolidation. Heart size not enlarged for; portable technique. Airway midline. The aorta is normal. No mediastinal or; hilar abnormalities. Bones intact.; ; Impression:; ; 1. Negative portable chest.; ; ; Signed by; Daniel Gr MD 12/18/2016 07:22 P; Radiology Order: CT Head Without Contrast Test: CT Head Without Contrast REASON FOR EXAMINATION: HTN, dizziness; ; CLINICAL HISTORY: HTN.; TECHNIQUE: Multiple axial brain CT scan sections were obtained from base to vertex without contrast a; dministration.; COMMENTS:; The study shows normal configuration of sella turcica. There are no intra or extra-axial collections.; There is no mass effect or midline shift. There is no evidence of hematoma formation. No hydrocephal; us is present. No abnormal calcifications are noted.; No significant abnormalities are seen either in the posterior fossa or supratentorial compartment.; The sinuses and mastoid air cells are patent.; IMPRESSION:; No evidence of acute intracranial pathology.; Thank you for your kind referral of this patient.; ; Outcome: 22:33 Discharge ordered by Provider. pc 22:57 Discharge Assessment: Patient awake, alert and oriented x 3. No cognitive and/or af2 functional deficits noted. Patient verbalized understanding of disposition instructions. patient administered narcotics - no. The following High Risk Discharge criteria are identified: None. Discharged to home ambulatory. Condition: stable. Discharge instructions given to patient, Instructed on discharge instructions, follow up and referral plans. medication usage, Demonstrated understanding of instructions, medications, Pt was receptive of discharge instructions/ teaching. CT Study completed. Property :Personal belongings accompany Pt. 22:58 Patient left the ED. af2 Signatures: Dispatcher [employer] EDMS Ham Parnell MD MD Diana Jacques, Jorge L Reg Jorge Scott Jessie, Sheet Metal Worker Apprentice Unit Pepper Elias RN RN af2 Donn Crooks RN RN nn1 Juan Carlos Martinez, STONEMASON STONEMASON Marlee Damico RN RN kas2 Bull Winn, STONEMASON STONEMASON jmv Chart Complete MTDD
--- NOTE | 2016-12-19 23:59 | EDDOCDS ---
Physician Documentation [facility] Name: Martin Watson Age: 26 yrs Sex: Male : 1990 Arrival Date: 12/17/2016 Time: 20:24 Bed 17 Private MD: [facility] Disposition: 12/17 22:32 Critical Care: Critical care not applicable. pc Disposition: 12/17/16 22:33 Discharged to Home/Self Care. Impression: Anxiety disorder, unspecified, Essential (primary) hypertension, Hypokalemia - mild, replaced. - Condition is Stable. - Discharge Instructions: Panic Attacks, Hypertension. - Prescriptions for Lisinopril 10 mg Oral Tablet - take 1 tablet by ORAL route at bedtime; 30 tablet. - Medication Reconciliation, Local Pharmacy Hours form. - Follow up: [facility]; When: 2 - 3 days; Reason: Recheck today's complaints, Continuance of care. - Problem is new. - Symptoms have improved. HPI: 20:56 This 26 yrs old Male presents to ER via Ambulance with complaints of pc Dizziness. 20:56 This 26 yrs old Male presents to ER via Ambulance with complaints of pc Dizziness. 20:56 The history is obtained from the patient. He says he is having an anxiety attack, that pc his BP is running high, he has dizziness chronically that is worse tonight and is hyperventilating, stating he feels his hands going numb. He has been told he has hypertension on the past by his PCP at [facility] but has never been told to take meds. His only other visis to this ED in April 2016 he was noted to be hypertensive as well. He denies any chest pain, headaches, visual changes. He denies drug use or OTC usage. He says there is hypertension at an early age in his parents. The patient has not recently seen a physician. Historical: - Allergies: Amoxicillin; Bactrim; SULFA (SULFONAMIDES); - Home Meds: 1. Lexapro 10 mg Oral tab 1 tab once daily 2. prednisone 20 mg Oral tab 2 tabs once daily x5 days - PMHx: Bronchitis; Seasonal Allergies; Anxiety; - PSHx: left shoulder surgery; - The history from nurses notes was reviewed: and I agree with what is documented. - Social history: Smoking status: Patient states was never smoker of tobacco. No barriers to communication noted, The patient speaks fluent Belgian. - : The pt / caregiver states he / she is not on anticoagulants. Home medication list is obtained from the patient. - Hospitalizations: : No recent hospitalization is reported. - Exposure Risk Screening:: None identified. - Immunization history:: All immunizations up-to-date. - Family history: Not pertinent. - Social history:: the patient is a non-smoker, the patient does not drink alcohol. ROS: 20:56 All systems are negative except as listed. pc Exam: 20:56 General Appearance: no acute distress, alert, anxious. pc 20:56 EENT: normal eye inspection, ears, nose and throat normal, pharynx normal, mucous membranes moist 20:56 Neck: The exam reveals no acute abnormalities. ROM is normal and painless. No nuchal rigidity is noted.. 20:56 Respiratory: no respiratory distress, normal breath sounds, Respirations/effort: tachypnea. 20:56 CVS: regular pulse rate, regular rhythm, normal S1 and S2, no murmurs, strong peripheral pulses, normal capillary refill. 20:56 Abdomen: soft, non-tender, no organomegaly, normal bowel sounds. 20:56 Back: normal inspection. 20:56 Skin: skin color is normal, warm, dry, no rashes, no lesions. 20:56 Extremities: The extremities have a grossly normal appearance, are non-tender, without acute ROM abnormalities. 20:56 Neuro: oriented x 3, cranial nerves normal as tested, no motor deficits, no sensory deficits, normal gait. 20:56 Psych: mood is depressed, affect is flat. Vital Signs: 20:41 BP 178 / 103; Pulse 76; Resp 20; Temp 97.8(O); Pulse Ox 100% on R/A; Weight 107.95 kg / jmv 237.99 lbs (R); Height 69 in. (175.26 cm) (R); Pain 0/10; 21:29 BP 139 / 80 (auto/); pc 21:43 BP 142 / 91 (auto/); af2 21:43 Pulse 72 MON; Resp 18 S; Pulse Ox 98% on R/A; af2 22:36 BP 135 / 79; Pulse 73; Resp 18; Temp 98.3(O); Pulse Ox 95% on R/A; Pain 4/10; mdr 20:41 Body Mass Index 35.15 (107.95 kg, 175.26 cm) jmv 20:41 RN notified of BP jmv MDM: 20:54 IV Saline Lock ordered. pc 20:54 Marble Setter/Pulse Ox/q 30 min VS ordered. pc 20:54 LORazepam 1 mg IVP once ordered. pc 20:55 CBC with Diff Ordered. EDMS 20:55 MED Profile Ordered. EDMS 20:55 TSH with Free T4 Ordered. EDMS 20:55 Drug Eval Toxicology ED Only Ordered. EDMS 20:55 Urinalysis Ordered. EDMS 20:55 CIP Ordered. EDMS 20:55 Troponin Ordered. EDMS 20:56 Chest, 1 View Ordered. EDMS 20:56 ECG WITH READING ER PHYS+CARDIAG ordered. EDMS 20:56 CT Head Without Contrast Ordered. EDMS 20:56 Differential Diagnosis: anxiety attack, hypertension, possibly anxiety related v pc essential. Plan: labs, EKG, imaging, meds. 21:31 CBC with Diff Reviewed. pc 21:31 Urinalysis Reviewed. pc 21:39 Test interpretation: EKG. pc 21:41 Drug Eval Toxicology ED Only Reviewed. pc 21:41 Urinalysis Reviewed. pc 21:45 Financial registration complete. zo 21:48 MED Profile Reviewed. pc 21:48 Troponin Reviewed. pc 21:48 Potassium Chloride Extended Release Tablet 40 mEq PO once ordered. pc 21:49 CIP Reviewed. pc 21:49 TSH with Free T4 Reviewed. pc 21:50 Lisinopril 10 mg PO once ordered. pc 21:56 MED Profile Reviewed. pc 21:56 TSH with Free T4 Reviewed. pc 21:56 CIP Reviewed. pc 21:56 Troponin Reviewed. pc 22:04 [facility] Payment Agreement was scanned into [employer] and attached to record. zo 22:32 Data reviewed: old medical records, vital signs, nurses notes, EKG(s), lab test pc results, all radiology studies and available results. Test interpretation: LAB - all labs as ordered have been reviewed, interpreted and considered in the overall management of the clinical presentation; X-RAY - interpreted by me, 1 view chest no acute disease, interpreted by Radiologist and personally reviewed, Head CT; no acute disease. The patient has been re-examined and re-evaluated. The patient's symptoms have markedly improved after treatment, with his BP 142/91 with only anxiolytics. Disposition: The historical points, examination findings, and any diagnostic results supporting the provided diagnosis, were discussed with the patient or legal guardian. The need for outpatient follow up with the provider listed on their discharge instructions was discussed. They were encouraged to return to [facility], or the nearest ED, if symptoms worsen/persist, or for any other questions/concerns. 12/19 10:25 ECG/EKG was scanned into [employer] and attached to record. EC/11 21:39 Rate is 67 beats/min. Rhythm is regular, Normal Sinus Rhythm. QRS Craig is Normal. [place] pc interval is normal. QRS interval is normal. QT interval is normal. No Q waves. T waves are Normal. ST Segment is elevated in leads I, II, aVL, V2, V3, V4, V5, V6, <1mm. Clinical impression: Normal Sinus Rhythm and ST-T changes consistent with early repolarization. Administered Medications: 21:32 Drug: LORazepam 1 mg [lorazepam 2 mg/mL injection solution (0.5 mL)] Route: IVP; Site: nn1 left antecubital; 22:01 Drug: Potassium Chloride 40 mEq [potassium chloride ER 10 mEq tablet,extended release af2 (4 tabs)] Route: PO; 22:01 Drug: Lisinopril 10 mg [lisinopril 10 mg tablet (1 tabs)] Route: PO; af2 Signatures: Dispatcher [employer] EDMS Ham Parnell MD MD pc Barnhardt, Gloria, Jorge Barney Amber, RN RN af2 Donn Crooks RN nn1 The chart was reviewed and I authenticate all verbal orders and agree with the evaluation and treatment provided.Attachments: 22:04 [facility] Payment Agreement zo 12/19 10:25 ECG/EKG Chart Complete MTDD
--- NOTE | 2016-12-19 23:59 | EDDOCDS ---
Physician Documentation [facility] Name: Martin Watson Age: 26 yrs Sex: Male : 1990 Arrival Date: 12/17/2016 Time: 20:24 Bed 17 Private MD: [facility] [place] Disposition: 12/17 22:32 Critical Care: Critical care not applicable. pc Disposition: 12/17/16 22:33 Discharged to Home/Self Care. Impression: Anxiety disorder, unspecified, Essential (primary) hypertension, Hypokalemia - mild, replaced. - Condition is Stable. - Discharge Instructions: Panic Attacks, Hypertension. - Prescriptions for Lisinopril 10 mg Oral Tablet - take 1 tablet by ORAL route at bedtime; 30 tablet. - Medication Reconciliation, Local Pharmacy Hours form. - Follow up: [facility]; When: 2 - 3 days; Reason: Recheck today's complaints, Continuance of care. - Problem is new. - Symptoms have improved. HPI: 20:56 This 26 yrs old Male presents to ER via Ambulance with complaints of pc Dizziness. 20:56 This 26 yrs old Male presents to ER via Ambulance with complaints of pc Dizziness. 20:56 The history is obtained from the patient. He says he is having an anxiety attack, that pc his BP is running high, he has dizziness chronically that is worse tonight and is hyperventilating, stating he feels his hands going numb. He has been told he has hypertension on the past by his PCP at [facility] but has never been told to take meds. His only other visis to this ED in April 2016 he was noted to be hypertensive as well. He denies any chest pain, headaches, visual changes. He denies drug use or OTC usage. He says there is hypertension at an early age in his parents. The patient has not recently seen a physician. Historical: - Allergies: Amoxicillin; Bactrim; SULFA (SULFONAMIDES); - Home Meds: 1. Lexapro 10 mg Oral tab 1 tab once daily 2. prednisone 20 mg Oral tab 2 tabs once daily x5 days - PMHx: Bronchitis; Seasonal Allergies; Anxiety; - PSHx: left shoulder surgery; - The history from nurses notes was reviewed: and I agree with what is documented. - Social history: Smoking status: Patient states was never smoker of tobacco. No barriers to communication noted, The patient speaks fluent Barbadian. - : The pt / caregiver states he / she is not on anticoagulants. Home medication list is obtained from the patient. - Hospitalizations: : No recent hospitalization is reported. - Exposure Risk Screening:: None identified. - Immunization history:: All immunizations up-to-date. - Family history: Not pertinent. - Social history:: the patient is a non-smoker, the patient does not drink alcohol. ROS: 20:56 All systems are negative except as listed. pc Exam: 20:56 General Appearance: no acute distress, alert, anxious. pc 20:56 EENT: normal eye inspection, ears, nose and throat normal, pharynx normal, mucous membranes moist 20:56 Neck: The exam reveals no acute abnormalities. ROM is normal and painless. No nuchal rigidity is noted.. 20:56 Respiratory: no respiratory distress, normal breath sounds, Respirations/effort: tachypnea. 20:56 CVS: regular pulse rate, regular rhythm, normal S1 and S2, no murmurs, strong peripheral pulses, normal capillary refill. 20:56 Abdomen: soft, non-tender, no organomegaly, normal bowel sounds. 20:56 Back: normal inspection. 20:56 Skin: skin color is normal, warm, dry, no rashes, no lesions. 20:56 Extremities: The extremities have a grossly normal appearance, are non-tender, without acute ROM abnormalities. 20:56 Neuro: oriented x 3, cranial nerves normal as tested, no motor deficits, no sensory deficits, normal gait. 20:56 Psych: mood is depressed, affect is flat. Vital Signs: 20:41 BP 178 / 103; Pulse 76; Resp 20; Temp 97.8(O); Pulse Ox 100% on R/A; Weight 107.95 kg / jmv 237.99 lbs (R); Height 69 in. (175.26 cm) (R); Pain 0/10; 21:29 BP 139 / 80 (auto/); pc 21:43 BP 142 / 91 (auto/); af2 21:43 Pulse 72 MON; Resp 18 S; Pulse Ox 98% on R/A; af2 22:36 BP 135 / 79; Pulse 73; Resp 18; Temp 98.3(O); Pulse Ox 95% on R/A; Pain 4/10; mdr 20:41 Body Mass Index 35.15 (107.95 kg, 175.26 cm) jmv 20:41 RN notified of BP jmv MDM: 20:54 IV Saline Lock ordered. pc 20:54 Cork Insulator Helper/Pulse Ox/q 30 min VS ordered. pc 20:54 LORazepam 1 mg IVP once ordered. pc 20:55 CBC with Diff Ordered. EDMS 20:55 MED Profile Ordered. EDMS 20:55 TSH with Free T4 Ordered. EDMS 20:55 Drug Eval Toxicology ED Only Ordered. EDMS 20:55 Urinalysis Ordered. EDMS 20:55 CIP Ordered. EDMS 20:55 Troponin Ordered. EDMS 20:56 Chest, 1 View Ordered. EDMS 20:56 ECG WITH READING ER PHYS+CARDIAG ordered. EDMS 20:56 CT Head Without Contrast Ordered. EDMS 20:56 Differential Diagnosis: anxiety attack, hypertension, possibly anxiety related v pc essential. Plan: labs, EKG, imaging, meds. 21:31 CBC with Diff Reviewed. pc 21:31 Urinalysis Reviewed. pc 21:39 Test interpretation: EKG. pc 21:41 Drug Eval Toxicology ED Only Reviewed. pc 21:41 Urinalysis Reviewed. pc 21:45 Financial registration complete. zo 21:48 MED Profile Reviewed. pc 21:48 Troponin Reviewed. pc 21:48 Potassium Chloride Extended Release Tablet 40 mEq PO once ordered. pc 21:49 CIP Reviewed. pc 21:49 TSH with Free T4 Reviewed. pc 21:50 Lisinopril 10 mg PO once ordered. pc 21:56 MED Profile Reviewed. pc 21:56 TSH with Free T4 Reviewed. pc 21:56 CIP Reviewed. pc 21:56 Troponin Reviewed. pc 22:04 [facility] was scanned into [employer] and attached to record. zo 22:32 Data reviewed: old medical records, vital signs, nurses notes, EKG(s), lab test pc results, all radiology studies and available results. Test interpretation: LAB - all labs as ordered have been reviewed, interpreted and considered in the overall management of the clinical presentation; X-RAY - interpreted by me, 1 view chest no acute disease, interpreted by Radiologist and personally reviewed, Head CT; no acute disease. The patient has been re-examined and re-evaluated. The patient's symptoms have markedly improved after treatment, with his BP 142/91 with only anxiolytics. Disposition: The historical points, examination findings, and any diagnostic results supporting the provided diagnosis, were discussed with the patient or legal guardian. The need for outpatient follow up with the provider listed on their discharge instructions was discussed. They were encouraged to return to [facility], or the nearest ED, if symptoms worsen/persist, or for any other questions/concerns. 12/19 10:25 ECG/EKG was scanned into [employer] and attached to record. EC/11 21:39 Rate is 67 beats/min. Rhythm is regular, Normal Sinus Rhythm. QRS [place] is Normal. NM pc interval is normal. QRS interval is normal. QT interval is normal. No Q waves. T waves are Normal. ST Segment is elevated in leads I, II, aVL, V2, V3, V4, V5, V6, <1mm. Clinical impression: Normal Sinus Rhythm and ST-T changes consistent with early repolarization. Administered Medications: 21:32 Drug: LORazepam 1 mg [lorazepam 2 mg/mL injection solution (0.5 mL)] Route: IVP; Site: nn1 left antecubital; 22:01 Drug: Potassium Chloride 40 mEq [potassium chloride ER 10 mEq tablet,extended release af2 (4 tabs)] Route: PO; 22:01 Drug: Lisinopril 10 mg [lisinopril 10 mg tablet (1 tabs)] Route: PO; af2 Signatures: Dispatcher [employer] EDMS Ham Parnell MD MD pc Barnhardt, Gloria, Jorge Barney Amber, RN RN af2 Donn Crooks RN nn1 The chart was reviewed and I authenticate all verbal orders and agree with the evaluation and treatment provided.Attachments: 22:04 [facility] Payment Agreement zo 12/19 10:25 ECG/EKG Chart Complete MTDD
== END 2016-12-17 22:58 | disposition home or self-care (01) ==
LOC: M ED 20:24
DX: F41.9 Anxiety disorder, unspecified (principal); E87.6 Hypokalemia; I10 Essential (primary) hypertension; J30.2 Other seasonal allergic rhinitis; Z87.09 Personal history of other diseases of the respiratory system; Z79.899 Other long term (current) drug therapy; Z88.0 Allergy status to penicillin; Z88.1 Allergy status to other antibiotic agents; Z88.2 Allergy status to sulfonamides
CPT/HCPCS: 70450; 71010; 80048; 80306; 81001; 82550; 82553; 84439; 84443; 85025; 93005; 93041; 96374; 99285; J2060

== ENCOUNTER 2016-12-18 11:09 | Emergency (ER) | payer OTHER ==
[2016-12-18 12:05] LABS: BASO % 0.2 % (0.0-1.0); EOS % 0.5 % (0.0-3.0); LARGE UNSTAINED CELL # 0.1 K/mm3 (0.0-0.4); LARGE UNSTAINED CELL % 1.2 % (0.0-4.0); LYMPH # 2.6 K/mm3 (1.5-6.5); LYMPH % 31.3 % (24.0-44.0); MEAN CORPUSCULAR HEMOGLOBIN 27.7 pg (27.0-33.0); MEAN CORPUSCULAR HGB CONC 33.2 g/dl (32.0-36.5); MEAN CORPUSCULAR VOLUME 83.2 fl (80.0-96.0); MONO # 0.5 K/mm3 (0.0-0.8); MONO % 5.7 % (0.0-5.0); NEUTROPHILS # 4.9 K/mm3 (1.8-7.7); NEUTROPHILS % 61.1 % (36.0-66.0); PLATELET COUNT, AUTOMATED 298 k/mm3 (150-450)
[2016-12-18] MEDS ORDERED: ACETAMINOPHEN 325 MG TAB As Ordered ONE (12:08)
[2016-12-18 12:31] LABS: ANION GAP 9 MEQ/L (8-16); BLOOD UREA NITROGEN 10 MG/DL (7-18); CALCIUM LEVEL 9.5 MG/DL (8.5-10.1); CARBON DIOXIDE LEVEL 27 MEQ/L (21-32); CHLORIDE LEVEL 108 MEQ/L (98-107); CREATININE FOR GFR 1.18 MG/DL (0.70-1.30); FREE T4 0.99 NG/DL (0.76-1.46); GLOMERULAR FILTRATION RATE > 60.0 (>60); GLUCOSE, FASTING 80 MG/DL (70-105); MAGNESIUM LEVEL 2.3 MG/DL (1.8-2.4); POTASSIUM SERUM 3.9 MEQ/L (3.5-5.1); SODIUM LEVEL 144 MEQ/L (136-145)
[2016-12-18] MEDS ORDERED: NORCO, ANEXSIA 5/325MG TABLET (HYDROcodone/ACETAMINOPHEN) As Ordered ONE (13:52)
--- NOTE | 2016-12-18 14:21 | EDDOCDS ---
Nurse's Notes [facility] Name: Martin Watson Age: 26 yrs Sex: Male : 1990 Arrival Date: 12/18/2016 Time: 11:09 Bed 12 Private MD: WIOrly DE LA CRUZ Diagnosis: Dizziness and giddiness;Hypertension secondary to other renal disorders Presentation: 12/18 11:18 Presenting complaint: Patient states: seen here last night for dizziness and reports pml symptoms persist. complains of headache. reports given meds for his bp to take home and took that at 0900 and still feels poorly. Adult Sepsis Screening: The patient does not have new or worsening altered mentation. Patient's respiratory rate is less than 22. Systolic blood pressure is greater than 100. Patient has a qSOFA score of 0- Negative Sepsis Screen. Suicide/Homicide risk assessment- the patient denies having any suicidal and/or homicidal ideations and does not present with any other emotional, behavioral or mental health complaints. 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 Transition of care: patient was not received from another setting of care. 11:18 Acuity: LONA Level 3 pml 11:18 Method Of Arrival: Walkin/Carried/Asstd pml Triage Assessment: 11:20 General: Appears uncomfortable, Behavior is appropriate for age, cooperative. Pain: pml Location: face Pain currently is 5 out of 10 on a pain scale. HIV screening NA for this visit Offered previously. Historical: - Allergies: Amoxicillin; Bactrim; SULFA (SULFONAMIDES); - Home Meds: 1. Lexapro 10 mg Oral tab 1 tab once daily (Last dose: 12/17/2016) 2. prednisone 20 mg Oral tab 2 tabs once daily x5 days (Last dose: 12/17/2016) 3. lisinopril 10 mg Oral tab 1 tab once daily (Last dose: 12/18/2016 09:00) - PMHx: Anxiety; Bronchitis; Seasonal Allergies; - PSHx: left shoulder surgery; - Social history: Smoking status: Patient states former smoker of tobacco. No barriers to communication noted, The patient speaks fluent Bots[place]an, Speaks appropriately for age. - Family history: Not pertinent. - : The pt / caregiver states he / she is not on anticoagulants. Home medication list is obtained from the patient. - Exposure Risk Screening:: None identified. Screenin:11 Screening information is obtained from the patient. Fall risk: No risks identified. ead Assistance ADL's: requires no assistance with activities of daily living. Abuse/DV Screen: The patient / caregiver reports he/she is: not in a situation that causes fear, pain or injury. Nutritional screening: No deficits noted. Advance Directives: Currently, there is no health care proxy. There is no Power of Transmitter Engineer In Charge. home support is adequate. Assessment: 11:55 General: Appears in no apparent distress, Behavior is appropriate for age, cooperative. ck1 Pain: Location: head Pain currently is 7 out of 10 on a pain scale. Neurological: Level of Consciousness is awake, alert, obeys commands, Oriented to person, place, time. Respiratory: Respiratory effort is unlabored, Respiratory pattern is regular, symmetrical. GI: No deficits noted. Derm: Skin is intact, is healthy with good turgor, Skin is pink, warm & dry. 13:00 General: Appears in no apparent distress, Behavior is appropriate for age, cooperative. ead Pain: Pain currently is 6 out of 10 on a pain scale. Neurological: Reports headache. Respiratory: Airway is patent Respiratory effort is even, unlabored. Derm: No deficits noted. 13:56 General: Appears in no apparent distress, Behavior is appropriate for age, cooperative. ead Neurological: Level of Consciousness is awake, alert, obeys commands, Oriented to person, place, time, Reports headache. Respiratory: No deficits noted. Derm: No deficits noted. Vital Signs: 11:11 BP 169 / 91; Pulse 78; Resp 18; Temp 98.7(O); Pulse Ox 100% on R/A; Weight 107.05 kg; ct3 Height 69 in. (175.26 cm) (R); Pain 0/10; 11:54 BP 151 / 100 Supine; Pulse 67; ck1 11:54 BP 150 / 95 Sitting; Pulse 90; ck1 11:54 BP 148 / 100 Standing; Pulse 92; ck1 12:02 BP 159 / 97 (auto/); ead 12:03 Pulse 68 MON; Pulse Ox 100% ; ead 12:17 BP 149 / 93 (auto/); ead 12:18 Pulse 58 MON; Pulse Ox 99% ; ead 12:47 BP 139 / 69 (auto/); ead 12:48 Pulse 64 MON; Resp 16; Pulse Ox 98% on R/A; ead 13:02 BP 136 / 79 (auto/); ead 13:03 Pulse 78 MON; Pulse Ox 99% ; ead 13:17 BP 136 / 77 (auto/); ead 13:18 Pulse 66 MON; Pulse Ox 96% ; ead 13:32 BP 138 / 76 (auto/); ead 13:33 Pulse 70 MON; Pulse Ox 99% ; ead 13:47 BP 133 / 78 (auto/); ead 13:48 Pulse 68 MON; Resp 14; Pulse Ox 99% on R/A; ead 14:18 BP 140 / 77; Pulse 68; Resp 16; Temp 99.2(TE); Pulse Ox 98% on R/A; Pain 4/10; ead 11:11 Body Mass Index 34.85 (107.05 kg, 175.26 cm) ct3 Vitals: 11:11 Log In Time: December 18, 2016 at 11:07. ct3 ED Course: 11:10 Patient visited by Chapis Lovell PCA. ct3 11:10 Patient moved to Waiting ct3 11:11 [facility], Orly West is Private Physician. ct3 11:12 Patient visited by Chapis Lovell PCA. ct3 11:12 Patient moved to Pre RCE ct3 11:20 Triage Initiated pml 11:21 Patient visited by Rosmery Armenta,KEN. pml 11:24 Corinne Lindsay,RN is Primary Nurse. pml 11:24 Patient moved to 13 pml 11:25 Derian Elias MD is Attending Physician. ml 11:25 Patient visited by Derian Elias MD. ml 11:26 Patient moved to I8 / 16 deg 11:54 CBC with Diff Sent. ck1 11:54 MED Profile Sent. ck1 11:54 CIP Sent. ck1 11:54 Troponin Sent. ck1 11:54 Magnesium Level Sent. ck1 11:54 FreeT4 with TSH Sent. ck1 11:55 Inserted saline lock: 20 gauge in left antecubital area and blood collected. The ck1 patient tolerated the procedure well. 11:56 Patient visited by Annalisa Short RN. ck1 11:59 EKG done. (by ED staff). Reviewed by Derian Elias MD. elp 12:04 Kasey Terry,RN is Primary Nurse. ck1 12:04 Patient moved to 12 ck1 12:05 Patient visited by Adrienne Lawrence, EVS TECH. elp 12:06 Patient visited by Adrienne Lawrence, EVS TECH. elp 12:06 monitoring analyst on. Pulse ox on. NIBP on. elp 12:14 The patient / caregiver is instructed regarding the plan of care and ED course. ead 13:00 Patient visited by Kasey Terry,KEN. ead 13:50 Patient visited by Kasey Terry,RN. ead 14:07 [facility] Ref[facility] Phys[facility]. ml 14:19 Discontinued IV intact, bleeding controlled, pressure dressing applied, No ead redness/swelling at site. No procedures done that require assistance. Administered Medications: 11:54 Drug: NS 0.9% 500 ml [sodium chloride 0.9 % intravenous solution] Route: IV; Rate: ck1 bolus; Site: left antecubital; 13:30 Follow up: IV Status: Completed infusion; IV Intake: 1000ml ; additional 500 cc bolus ead given with vebal order per Dr. Suarez 12:14 Drug: Acetaminophen 650 mg [acetaminophen 325 mg tablet (2 tabs)] Route: PO; ead 13:55 Drug: HYDROcodone-acetaminophen 1 tabs [hydrocodone 5 mg-acetaminophen 325 mg tablet (1 ead tabs)] Route: PO; 14:18 Follow up: Response: Confirmed pt not driving.; No Adverse Reaction; Pain is decreased ead Intake: 13:30 IV: 1000.00ml; Total: 1000.00ml. ead Order Results: Lab Order: CBC with Diff; SPEC'M 12/18/16 11:51 Test: WHITE BLOOD COUNT; Value: 8.0; Range: 4.0-10.0; Units: K/mm3; Status: F Test: RED BLOOD COUNT; Value: 5.54; Range: 4.30-6.10; Units: M/mm3; Status: F Test: HEMOGLOBIN; Value: 15.3; Range: 14.0-18.0; Units: g/dl; Status: F Test: HEMATOCRIT; Value: 46.2; Range: 42.0-52.0; Units: %; Status: F Test: MEAN CORPUSCULAR VOLUME; Value: 83.2; Range: 80.0-96.0; Units: fl; Status: F Test: MEAN CORPUSCULAR HEMOGLOBIN; Value: 27.7; Range: 27.0-33.0; Units: pg; Status: F Test: MEAN CORPUSCULAR HGB CONC; Value: 33.2; Range: 32.0-36.5; Units: g/dl; Status: F Test: RED CELL DISTRIBUTION WIDTH; Value: 13.0; Range: 11.5-14.5; Units: %; Status: F Test: PLATELET COUNT, AUTOMATED; Value: 298; Range: 150-450; Units: k/mm3; Status: F Test: NEUTROPHILS %; Value: 61.1; Range: 36.0-66.0; Units: %; Status: F Test: LYMPH %; Value: 31.3; Range: 24.0-44.0; Units: %; Status: F Test: MONO %; Value: 5.7; Range: 0.0-5.0; Abnormal: Above high normal; Units: %; Status: F Test: EOS %; Value: 0.5; Range: 0.0-3.0; Units: %; Status: F Test: BASO %; Value: 0.2; Range: 0.0-1.0; Units: %; Status: F Test: LARGE UNSTAINED CELL %; Value: 1.2; Range: 0.0-4.0; Units: %; Status: F Test: NEUTROPHILS #; Value: 4.9; Range: 1.8-7.7; Units: K/mm3; Status: F Test: LYMPH #; Value: 2.6; Range: 1.5-6.5; Units: K/mm3; Status: F Test: MONO #; Value: 0.5; Range: 0.0-0.8; Units: K/mm3; Status: F Test: EOS #; Value: 0.0; Range: 0.0-0.50; Units: K/mm3; Status: F Test: BASO #; Value: 0.0; Range: 0.0-0.2; Units: K/mm3; Status: F Test: LARGE UNSTAINED CELL #; Value: 0.1; Range: 0.0-0.4; Units: K/mm3; Status: F Lab Order: MED Profile; [facility]12/18/16 11:51 Test: GLUCOSE, FASTING; Value: 80; Range: 70-105; Units: MG/DL; Status: F Test: BLOOD UREA NITROGEN; Value: 10; Range: 7-18; Units: MG/DL; Status: F Test: CREATININE FOR GFR; Value: 1.18; Range: 0.70-1.30; Units: MG/DL; Status: F Test: GLOMERULAR FILTRATION RATE; Value: > 60.0; Range: >60; Status: F Test: SODIUM LEVEL; Value: 144; Range: 136-145; Units: MEQ/L; Status: F Test: POTASSIUM SERUM; Value: 3.9; Range: 3.5-5.1; Units: MEQ/L; Status: F Test: CHLORIDE LEVEL; Value: 108; Range: 98-107; Abnormal: Above high normal; Units: MEQ/L; Status: F Test: CARBON DIOXIDE LEVEL; Value: 27; Range: 21-32; Units: MEQ/L; Status: F Test: ANION GAP; Value: 9; Range: 8-16; Units: MEQ/L; Status: F Test: CALCIUM LEVEL; Value: 9.5; Range: 8.5-10.1; Units: MG/DL; Status: F Test Note: ; Units are mL/min/1.73 m2 Chronic Kidney Disease Staging per NKF: Stage I & II GFR >=60 Normal to Mildly Decreased Stage III GFR 30-59 Moderately Decreased Stage IV GFR 15-29 Severely Decreased Stage V GFR <15 Very Little GFR Left ESRD GFR <15 on WELDING PANTOGRAPH MACHINE OPERATOR Lab Order: CIP; SPEC'12/18/16 11:51 Test: CPK CREATINE PHOSPHOKINASE; Value: 195; Range: 39-308; Units: U/L; Status: F Test: CK-MB VALUE MASS; Value: 2.0; Range: 0.0-3.6; Units: NG/ML; Status: F Test: MB/CK RELATIVE INDEX; Value: 1.02; Range: < OR =4; Status: F Test Note: ; DIAGNOSIS CRITERIA MMB ng/ml Relative Index (RI) NON-AMI < or = 5 N/A SUAREZ ZONE > 5 < or = 4 AMI > 5 > 4 Lab Order: Troponin; SPEC'M 12/18/16 11:51 Test: TROPONIN I; Value: < 0.02; Range: < 0.10; Units: NG/ML; Status: F Test Note: ; Troponin I Reference Interval for Siemens [place] LOCI: 99th Percentile= 0.00-0.045 ng/ml Risk Stratification: <= 0.10 ng/ml Decreased Risk for Adverse Clinical Events. 0.10-1.50 ng/ml Increased Risk for Adverse Clinical Events. Evaluation of additional criterion and/or repeat testing in 2-6 hours is suggested to rule out myocardial damage. >= 1.50 ng/ml Indicative of Myocardial Injury. Lab Order: Magnesium Level; SPEC'M 12/18/16 11:51 Test: MAGNESIUM LEVEL; Value: 2.3; Range: 1.8-2.4; Units: MG/DL; Status: F Lab Order: FreeT4 with TSH; SPEC'M 12/18/16 11:51 Test: THYROID STIMULATING HORMONE; Value: 0.853; Range: 0.358-3.740; Units: uIU/ML; Status: F Test: FREE T4; Value: 0.99; Range: 0.76-1.46; Units: NG/DL; Status: F Outcome: 14:08 Discharge ordered by Provider. ml 14:19 Discharge Assessment: Patient awake and alert. obeys commands, Oriented to person, ead place and time. patient administered narcotics - yes. Pt provided with safe discharge. The following High Risk Discharge criteria are identified: None. Discharged to home ambulatory, with friend. Condition: improved. Discharge instructions given to patient, Instructed on discharge instructions, follow up and referral plans. Demonstrated understanding of instructions, medications, Pt was receptive of discharge instructions/ teaching. No special radiology studies were completed. Property sent home with patient. 14:20 Patient left the ED. ead Signatures: Derian Elias MD MD ml Murray, Denise, Hazmat Tanker Driver Unit deg Marlee-Annalisa TorresRN RN ck1 Chapis Lovell, EVS TECH EVS TECH ct3 Rosmery Armenta,RN RN Adrienne Valadez, EVS TECH EVS TECH elp Mara,Kasey,RN RN ead MTDD
--- NOTE | 2016-12-18 14:21 | EDDOCDS ---
Physician Documentation [facility] Name: Martin Watson Age: 26 yrs Sex: Male : 1990 Arrival Date: 12/18/2016 Time: 11:09 Bed 12 Private MD: [facility] Disposition: 12/18/16 14:08 Discharged to Home/Self Care. Impression: Dizziness and giddiness, Hypertension secondary to other renal disorders. - Condition is Stable. - Discharge Instructions: Dizziness, Hypertension. - Medication Reconciliation, Local Pharmacy Hours, Work Release Form - 2 day form. - Follow up: [facility]; When: Tomorrow. - Problem is new. - Symptoms have improved. - Notes: return if worsening symptoms. follow up tomorrow with sick call as instructed Historical: - Allergies: Amoxicillin; Bactrim; SULFA (SULFONAMIDES); - Home Meds: 1. Lexapro 10 mg Oral tab 1 tab once daily (Last dose: 12/17/2016) 2. prednisone 20 mg Oral tab 2 tabs once daily x5 days (Last dose: 12/17/2016) 3. lisinopril 10 mg Oral tab 1 tab once daily (Last dose: 12/18/2016 09:00) - PMHx: Anxiety; Bronchitis; Seasonal Allergies; - PSHx: left shoulder surgery; - Social history: Smoking status: Patient states former smoker of tobacco. No barriers to communication noted, The patient speaks fluent [place], Speaks appropriately for age. - Family history: Not pertinent. - : The pt / caregiver states he / she is not on anticoagulants. Home medication list is obtained from the patient. - Exposure Risk Screening:: None identified. Vital Signs: 12/18 11:11 BP 169 / 91; Pulse 78; Resp 18; Temp 98.7(O); Pulse Ox 100% on R/A; Weight 107.05 kg / ct3 236 lbs; Height 69 in. (175.26 cm) (R); Pain 0/10; 11:54 BP 151 / 100 Supine; Pulse 67; ck1 11:54 BP 150 / 95 Sitting; Pulse 90; ck1 11:54 BP 148 / 100 Standing; Pulse 92; ck1 12:02 BP 159 / 97 (auto/); ead 12:03 Pulse 68 MON; Pulse Ox 100% ; ead 12:17 BP 149 / 93 (auto/); ead 12:18 Pulse 58 MON; Pulse Ox 99% ; ead 12:47 BP 139 / 69 (auto/); ead 12:48 Pulse 64 MON; Resp 16; Pulse Ox 98% on R/A; ead 13:02 BP 136 / 79 (auto/); ead 13:03 Pulse 78 MON; Pulse Ox 99% ; ead 13:17 BP 136 / 77 (auto/); ead 13:18 Pulse 66 MON; Pulse Ox 96% ; ead 13:32 BP 138 / 76 (auto/); ead 13:33 Pulse 70 MON; Pulse Ox 99% ; ead 13:47 BP 133 / 78 (auto/); ead 13:48 Pulse 68 MON; Resp 14; Pulse Ox 99% on R/A; ead 14:18 BP 140 / 77; Pulse 68; Resp 16; Temp 99.2(TE); Pulse Ox 98% on R/A; Pain 4/10; ead 11:11 Body Mass Index 34.85 (107.05 kg, 175.26 cm) ct3 MDM: 11:36 Orthostatic VS ordered. ml 11:36 IV Saline Lock ordered. ml 11:36 NS 0.9% 500 ml IV at bolus once ordered. ml 11:37 ECG WITH READING ER PHYS+CARDIAG ordered. EDMS 11:37 CBC with Diff Ordered. EDMS 11:37 MED Profile Ordered. EDMS 11:37 CIP Ordered. EDMS 11:37 Troponin Ordered. EDMS 11:37 Magnesium Level Ordered. EDMS 11:37 FreeT4 with TSH Ordered. EDMS 12:03 Acetaminophen Tablet 650 mg PO once ordered. ml 12:48 Misc. Nursing Order ordered. ml 12:48 CBC with Diff Reviewed. ml 12:48 MED Profile Reviewed. ml 12:48 CIP Reviewed. ml 12:48 Troponin Reviewed. ml 12:48 Magnesium Level Reviewed. ml 12:48 FreeT4 with TSH Reviewed. ml 13:31 HYDROcodone-acetaminophen 5 mg-325 mg 1 tabs PO once ordered. ml Administered Medications: 11:54 Drug: NS 0.9% 500 ml [sodium chloride 0.9 % intravenous solution] Route: IV; Rate: ck1 bolus; Site: left antecubital; 12:14 Drug: Acetaminophen 650 mg [acetaminophen 325 mg tablet (2 tabs)] Route: PO; ead 13:55 Drug: HYDROcodone-acetaminophen 1 tabs [hydrocodone 5 mg-acetaminophen 325 mg tablet (1 ead tabs)] Route: PO; 14:18 Follow up: Response: Confirmed pt not driving.; No Adverse Reaction; Pain is decreased ead Signatures: Dispatcher [employer] Derian Copeland MD MD ml Quay, Paulina, RN RN pml Dunaway, Emily, RN RN ead Kim-Ashcraft, Connie RN ck1 MTDFavio
--- NOTE | 2016-12-18 19:34 | ECGEPIP ---
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
--- NOTE | 2016-12-20 15:21 | EDDOCDS ---
Physician Documentation [facility] Name: Martin Watson Age: 26 yrs Sex: Male : 1990 Arrival Date: 12/18/2016 Time: 11:09 Bed 12 Private MD: [facility] [place] Disposition: 12/18/16 14:08 Discharged to Home/Self Care. Impression: Dizziness and giddiness, Hypertension secondary to other renal disorders. - Condition is Stable. - Discharge Instructions: Dizziness, Hypertension. - Medication Reconciliation, Local Pharmacy Hours, Work Release Form - 2 day form. - Follow up: [facility]; When: Tomorrow. - Problem is new. - Symptoms have improved. - Notes: return if worsening symptoms. follow up tomorrow with sick call as instructed Historical: - Allergies: Amoxicillin; Bactrim; SULFA (SULFONAMIDES); - Home Meds: 1. Lexapro 10 mg Oral tab 1 tab once daily (Last dose: 12/17/2016) 2. prednisone 20 mg Oral tab 2 tabs once daily x5 days (Last dose: 12/17/2016) 3. lisinopril 10 mg Oral tab 1 tab once daily (Last dose: 12/18/2016 09:00) - PMHx: Anxiety; Bronchitis; Seasonal Allergies; - PSHx: left shoulder surgery; - Social history: Smoking status: Patient states former smoker of tobacco. No barriers to communication noted, The patient speaks fluent Kazakh, Speaks appropriately for age. - Family history: Not pertinent. - : The pt / caregiver states he / she is not on anticoagulants. Home medication list is obtained from the patient. - Exposure Risk Screening:: None identified. Vital Signs: 12/18 11:11 BP 169 / 91; Pulse 78; Resp 18; Temp 98.7(O); Pulse Ox 100% on R/A; Weight 107.05 kg / ct3 236 lbs; Height 69 in. (175.26 cm) (R); Pain 0/10; 11:54 BP 151 / 100 Supine; Pulse 67; ck1 11:54 BP 150 / 95 Sitting; Pulse 90; ck1 11:54 BP 148 / 100 Standing; Pulse 92; ck1 12:02 BP 159 / 97 (auto/); ead 12:03 Pulse 68 MON; Pulse Ox 100% ; ead 12:17 BP 149 / 93 (auto/); ead 12:18 Pulse 58 MON; Pulse Ox 99% ; ead 12:47 BP 139 / 69 (auto/); ead 12:48 Pulse 64 MON; Resp 16; Pulse Ox 98% on R/A; ead 13:02 BP 136 / 79 (auto/); ead 13:03 Pulse 78 MON; Pulse Ox 99% ; ead 13:17 BP 136 / 77 (auto/); ead 13:18 Pulse 66 MON; Pulse Ox 96% ; ead 13:32 BP 138 / 76 (auto/); ead 13:33 Pulse 70 MON; Pulse Ox 99% ; ead 13:47 BP 133 / 78 (auto/); ead 13:48 Pulse 68 MON; Resp 14; Pulse Ox 99% on R/A; ead 14:18 BP 140 / 77; Pulse 68; Resp 16; Temp 99.2(TE); Pulse Ox 98% on R/A; Pain 4/10; ead 11:11 Body Mass Index 34.85 (107.05 kg, 175.26 cm) ct3 MDM: 11:36 Orthostatic VS ordered. ml 11:36 IV Saline Lock ordered. ml 11:36 NS 0.9% 500 ml IV at bolus once ordered. ml 11:37 ECG WITH READING ER PHYS+CARDIAG ordered. EDMS 11:37 CBC with Diff Ordered. EDMS 11:37 MED Profile Ordered. EDMS 11:37 CIP Ordered. EDMS 11:37 Troponin Ordered. EDMS 11:37 Magnesium Level Ordered. EDMS 11:37 FreeT4 with TSH Ordered. EDMS 12:03 Acetaminophen Tablet 650 mg PO once ordered. ml 12:48 Misc. Nursing Order ordered. ml 12:48 CBC with Diff Reviewed. ml 12:48 MED Profile Reviewed. ml 12:48 CIP Reviewed. ml 12:48 Troponin Reviewed. ml 12:48 Magnesium Level Reviewed. ml 12:48 FreeT4 with TSH Reviewed. ml 13:31 HYDROcodone-acetaminophen 5 mg-325 mg 1 tabs PO once ordered. ml 14:32 Financial registration complete. mm15 14:32 [facility] Payment Agreement was scanned into [employer] and attached to record. mm15 16:00 PCR was scanned into [employer] and attached to record. mt4 20:38 T-Sheet-- Draft Copy was scanned into [employer] and attached to record. [facility] 12/19 13:20 ECG/EKG was scanned into [employer] and attached to record. gb Administered Medications: 12/18 11:54 Drug: NS 0.9% 500 ml [sodium chloride 0.9 % intravenous solution] Route: IV; Rate: ck1 bolus; Site: left antecubital; 13:30 Follow up: IV Status: Completed infusion; IV Intake: 1000ml ; additional 500 cc bolus ead given with vebal order per Dr. Suarez 12:14 Drug: Acetaminophen 650 mg [acetaminophen 325 mg tablet (2 tabs)] Route: PO; ead 13:55 Drug: HYDROcodone-acetaminophen 1 tabs [hydrocodone 5 mg-acetaminophen 325 mg tablet (1 ead tabs)] Route: PO; 14:18 Follow up: Response: Confirmed pt not driving.; No Adverse Reaction; Pain is decreased ead Signatures: Dispatcher [employer] EDMS Derian Elias MD MD Diana Jacques, Jorge L Reg Gladis Heller mt4 Rosmery ArmentaRN RN Herbert Lockhart mm15 Kasey Terry RN RN Becki Ramírez Connie RN ck1 The chart was reviewed and I authenticate all verbal orders and agree with the evaluation and treatment provided.Attachments: 14:32 [facility] Payment Agreement mm15 20:38 T-Sheet-- Draft Copy [facility] 12/19 13:20 ECG/EKG gb Chart Complete MTDD
--- NOTE | 2016-12-20 15:21 | EDDOCDS ---
Physician Documentation [facility] Name: Martin Watson Age: 26 yrs Sex: Male : 1990 Arrival Date: 12/18/2016 Time: 11:09 Bed 12 Private MD: [facility] [place] Disposition: 12/18/16 14:08 Discharged to Home/Self Care. Impression: Dizziness and giddiness, Hypertension secondary to other renal disorders. - Condition is Stable. - Discharge Instructions: Dizziness, Hypertension. - Medication Reconciliation, Local Pharmacy Hours, Work Release Form - 2 day form. - Follow up: [facility]; When: Tomorrow. - Problem is new. - Symptoms have improved. - Notes: return if worsening symptoms. follow up tomorrow with sick call as instructed Historical: - Allergies: Amoxicillin; Bactrim; SULFA (SULFONAMIDES); - Home Meds: 1. Lexapro 10 mg Oral tab 1 tab once daily (Last dose: 12/17/2016) 2. prednisone 20 mg Oral tab 2 tabs once daily x5 days (Last dose: 12/17/2016) 3. lisinopril 10 mg Oral tab 1 tab once daily (Last dose: 12/18/2016 09:00) - PMHx: Anxiety; Bronchitis; Seasonal Allergies; - PSHx: left shoulder surgery; - Social history: Smoking status: Patient states former smoker of tobacco. No barriers to communication noted, The patient speaks fluent Arabic, Speaks appropriately for age. - Family history: Not pertinent. - : The pt / caregiver states he / she is not on anticoagulants. Home medication list is obtained from the patient. - Exposure Risk Screening:: None identified. Vital Signs: 12/18 11:11 BP 169 / 91; Pulse 78; Resp 18; Temp 98.7(O); Pulse Ox 100% on R/A; Weight 107.05 kg / ct3 236 lbs; Height 69 in. (175.26 cm) (R); Pain 0/10; 11:54 BP 151 / 100 Supine; Pulse 67; ck1 11:54 BP 150 / 95 Sitting; Pulse 90; ck1 11:54 BP 148 / 100 Standing; Pulse 92; ck1 12:02 BP 159 / 97 (auto/); ead 12:03 Pulse 68 MON; Pulse Ox 100% ; ead 12:17 BP 149 / 93 (auto/); ead 12:18 Pulse 58 MON; Pulse Ox 99% ; ead 12:47 BP 139 / 69 (auto/); ead 12:48 Pulse 64 MON; Resp 16; Pulse Ox 98% on R/A; ead 13:02 BP 136 / 79 (auto/); ead 13:03 Pulse 78 MON; Pulse Ox 99% ; ead 13:17 BP 136 / 77 (auto/); ead 13:18 Pulse 66 MON; Pulse Ox 96% ; ead 13:32 BP 138 / 76 (auto/); ead 13:33 Pulse 70 MON; Pulse Ox 99% ; ead 13:47 BP 133 / 78 (auto/); ead 13:48 Pulse 68 MON; Resp 14; Pulse Ox 99% on R/A; ead 14:18 BP 140 / 77; Pulse 68; Resp 16; Temp 99.2(TE); Pulse Ox 98% on R/A; Pain 4/10; ead 11:11 Body Mass Index 34.85 (107.05 kg, 175.26 cm) ct3 MDM: 11:36 Orthostatic VS ordered. ml 11:36 IV Saline Lock ordered. ml 11:36 NS 0.9% 500 ml IV at bolus once ordered. ml 11:37 ECG WITH READING ER PHYS+CARDIAG ordered. EDMS 11:37 CBC with Diff Ordered. EDMS 11:37 MED Profile Ordered. EDMS 11:37 CIP Ordered. EDMS 11:37 Troponin Ordered. EDMS 11:37 Magnesium Level Ordered. EDMS 11:37 FreeT4 with TSH Ordered. EDMS 12:03 Acetaminophen Tablet 650 mg PO once ordered. ml 12:48 Misc. Nursing Order ordered. ml 12:48 CBC with Diff Reviewed. ml 12:48 MED Profile Reviewed. ml 12:48 CIP Reviewed. ml 12:48 Troponin Reviewed. ml 12:48 Magnesium Level Reviewed. ml 12:48 FreeT4 with TSH Reviewed. ml 13:31 HYDROcodone-acetaminophen 5 mg-325 mg 1 tabs PO once ordered. ml 14:32 Financial registration complete. mm15 14:32 [facility] Payment Agreement was scanned into [employer] and attached to record. mm15 16:00 PCR was scanned into [employer] and attached to record. mt4 20:38 T-Sheet-- Draft Copy was scanned into [employer] and attached to record. [facility] 12/19 13:20 ECG/EKG was scanned into [email or web address] and attached to record. gb Administered Medications: 12/18 11:54 Drug: NS 0.9% 500 ml [sodium chloride 0.9 % intravenous solution] Route: IV; Rate: ck1 bolus; Site: left antecubital; 13:30 Follow up: IV Status: Completed infusion; IV Intake: 1000ml ; additional 500 cc bolus ead given with vebal order per Dr. Suarez 12:14 Drug: Acetaminophen 650 mg [acetaminophen 325 mg tablet (2 tabs)] Route: PO; ead 13:55 Drug: HYDROcodone-acetaminophen 1 tabs [hydrocodone 5 mg-acetaminophen 325 mg tablet (1 ead tabs)] Route: PO; 14:18 Follow up: Response: Confirmed pt not driving.; No Adverse Reaction; Pain is decreased ead Signatures: Dispatcher [employer] EDMS Derian Elias MD MD Diana Jacques, Jorge L Reg Gladis Heller mt4 Rosmery ArmentaRN RN Herbert Lockhart mm15 Kasey Terry RN RN Becki Ramírez Connie RN ck1 The chart was reviewed and I authenticate all verbal orders and agree with the evaluation and treatment provided.Attachments: 14:32 [facility] Payment Agreement mm15 20:38 T-Sheet-- Draft Copy [facility] 12/19 13:20 ECG/EKG gb Chart Complete MTDD
--- NOTE | 2016-12-20 15:21 | EDDOCDS ---
Nurse's Notes [facility] Name: Martin Watson Age: 26 yrs Sex: Male : 1990 Arrival Date: 12/18/2016 Time: 11:09 Bed 12 Private MD: COOrly DE LA CRUZ Diagnosis: Dizziness and giddiness;Hypertension secondary to other renal disorders Presentation: 12/18 11:18 Presenting complaint: Patient states: seen here last night for dizziness and reports pml symptoms persist. complains of headache. reports given meds for his bp to take home and took that at 0900 and still feels poorly. Adult Sepsis Screening: The patient does not have new or worsening altered mentation. Patient's respiratory rate is less than 22. Systolic blood pressure is greater than 100. Patient has a qSOFA score of 0- Negative Sepsis Screen. Suicide/Homicide risk assessment- the patient denies having any suicidal and/or homicidal ideations and does not present with any other emotional, behavioral or mental health complaints. 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 Transition of care: patient was not received from another setting of care. 11:18 Acuity: LONA Level 3 pml 11:18 Method Of Arrival: Walkin/Carried/Asstd pml Triage Assessment: 11:20 General: Appears uncomfortable, Behavior is appropriate for age, cooperative. Pain: pml Location: face Pain currently is 5 out of 10 on a pain scale. HIV screening NA for this visit Offered previously. Historical: - Allergies: Amoxicillin; Bactrim; SULFA (SULFONAMIDES); - Home Meds: 1. Lexapro 10 mg Oral tab 1 tab once daily (Last dose: 12/17/2016) 2. prednisone 20 mg Oral tab 2 tabs once daily x5 days (Last dose: 12/17/2016) 3. lisinopril 10 mg Oral tab 1 tab once daily (Last dose: 12/18/2016 09:00) - PMHx: Anxiety; Bronchitis; Seasonal Allergies; - PSHx: left shoulder surgery; - Social history: Smoking status: Patient states former smoker of tobacco. No barriers to communication noted, The patient speaks fluent Micronesian, Speaks appropriately for age. - Family history: Not pertinent. - : The pt / caregiver states he / she is not on anticoagulants. Home medication list is obtained from the patient. - Exposure Risk Screening:: None identified. Screenin:11 Screening information is obtained from the patient. Fall risk: No risks identified. ead Assistance ADL's: requires no assistance with activities of daily living. Abuse/DV Screen: The patient / caregiver reports he/she is: not in a situation that causes fear, pain or injury. Nutritional screening: No deficits noted. Advance Directives: Currently, there is no health care proxy. There is no Power of Film Or Videotape Editor. home support is adequate. Assessment: 11:55 General: Appears in no apparent distress, Behavior is appropriate for age, cooperative. ck1 Pain: Location: head Pain currently is 7 out of 10 on a pain scale. Neurological: Level of Consciousness is awake, alert, obeys commands, Oriented to person, place, time. Respiratory: Respiratory effort is unlabored, Respiratory pattern is regular, symmetrical. GI: No deficits noted. Derm: Skin is intact, is healthy with good turgor, Skin is pink, warm & dry. 13:00 General: Appears in no apparent distress, Behavior is appropriate for age, cooperative. ead Pain: Pain currently is 6 out of 10 on a pain scale. Neurological: Reports headache. Respiratory: Airway is patent Respiratory effort is even, unlabored. Derm: No deficits noted. 13:56 General: Appears in no apparent distress, Behavior is appropriate for age, cooperative. ead Neurological: Level of Consciousness is awake, alert, obeys commands, Oriented to person, place, time, Reports headache. Respiratory: No deficits noted. Derm: No deficits noted. Vital Signs: 11:11 BP 169 / 91; Pulse 78; Resp 18; Temp 98.7(O); Pulse Ox 100% on R/A; Weight 107.05 kg; ct3 Height 69 in. (175.26 cm) (R); Pain 0/10; 11:54 BP 151 / 100 Supine; Pulse 67; ck1 11:54 BP 150 / 95 Sitting; Pulse 90; ck1 11:54 BP 148 / 100 Standing; Pulse 92; ck1 12:02 BP 159 / 97 (auto/); ead 12:03 Pulse 68 MON; Pulse Ox 100% ; ead 12:17 BP 149 / 93 (auto/); ead 12:18 Pulse 58 MON; Pulse Ox 99% ; ead 12:47 BP 139 / 69 (auto/); ead 12:48 Pulse 64 MON; Resp 16; Pulse Ox 98% on R/A; ead 13:02 BP 136 / 79 (auto/); ead 13:03 Pulse 78 MON; Pulse Ox 99% ; ead 13:17 BP 136 / 77 (auto/); ead 13:18 Pulse 66 MON; Pulse Ox 96% ; ead 13:32 BP 138 / 76 (auto/); ead 13:33 Pulse 70 MON; Pulse Ox 99% ; ead 13:47 BP 133 / 78 (auto/); ead 13:48 Pulse 68 MON; Resp 14; Pulse Ox 99% on R/A; ead 14:18 BP 140 / 77; Pulse 68; Resp 16; Temp 99.2(TE); Pulse Ox 98% on R/A; Pain 4/10; ead 11:11 Body Mass Index 34.85 (107.05 kg, 175.26 cm) ct3 Vitals: 11:11 Log In Time: December 18, 2016 at 11:07. ct3 ED Course: 11:10 Patient visited by Chapis Lovell PCA. ct3 11:10 Patient moved to Waiting ct3 11:11 [facility], Orly West is Private Physician. ct3 11:12 Patient visited by Chapis Lovell PCA. ct3 11:12 Patient moved to Pre RCE ct3 11:20 Triage Initiated pml 11:21 Patient visited by Rosmery Armenta,KEN. pml 11:24 Corinne Lindsay,RN is Primary Nurse. pml 11:24 Patient moved to 13 pml 11:25 Derian Elias MD is Attending Physician. ml 11:25 Patient visited by Derian Elias MD. ml 11:26 Patient moved to I8 / 16 deg 11:54 CBC with Diff Sent. ck1 11:54 MED Profile Sent. ck1 11:54 CIP Sent. ck1 11:54 Troponin Sent. ck1 11:54 Magnesium Level Sent. ck1 11:54 FreeT4 with TSH Sent. ck1 11:55 Inserted saline lock: 20 gauge in left antecubital area and blood collected. The ck1 patient tolerated the procedure well. 11:56 Patient visited by Annalisa Short RN. ck1 11:59 EKG done. (by ED staff). Reviewed by Derian Elias MD. elp 12:04 Kasey Terry,RN is Primary Nurse. ck1 12:04 Patient moved to 12 ck1 12:05 Patient visited by Adrienne Lawrence, CLOTHES WRINGER. elp 12:06 Patient visited by Adrienne Lawrence, CLOTHES WRINGER. elp 12:06 playground monitor on. Pulse ox on. NIBP on. elp 12:14 The patient / caregiver is instructed regarding the plan of care and ED course. ead 13:00 Patient visited by Kasey Terry,RN. ead 13:50 Patient visited by Kasey Terry,RN. ead 14:07 [facility] ml 14:19 Discontinued IV intact, bleeding controlled, pressure dressing applied, No ead redness/swelling at site. No procedures done that require assistance. 14:32 [facility] Payment Agreement was scanned into [employer] and attached to record. mm15 16:00 PCR was scanned into [employer] and attached to record. mt4 20:15 EKG-ADULT Returned. EDMS 20:38 T-Sheet-- Draft Copy was scanned into [employer] and attached to record. klr 02 13:20 ECG/EKG was scanned into [employer] and attached to record. gb Administered Medications: 12/18 11:54 Drug: NS 0.9% 500 ml [sodium chloride 0.9 % intravenous solution] Route: IV; Rate: ck1 bolus; Site: left antecubital; 13:30 Follow up: IV Status: Completed infusion; IV Intake: 1000ml ; additional 500 cc bolus ead given with vebal order per Dr. Suarez 12:14 Drug: Acetaminophen 650 mg [acetaminophen 325 mg tablet (2 tabs)] Route: PO; ead 13:55 Drug: HYDROcodone-acetaminophen 1 tabs [hydrocodone 5 mg-acetaminophen 325 mg tablet (1 ead tabs)] Route: PO; 14:18 Follow up: Response: Confirmed pt not driving.; No Adverse Reaction; Pain is decreased ead Intake: 13:30 IV: 1000.00ml; Total: 1000.00ml. ead Order Results: Lab Order: CBC with Diff; SPEC'M 12/18/16 11:51 Test: WHITE BLOOD COUNT; Value: 8.0; Range: 4.0-10.0; Units: K/mm3; Status: F Test: RED BLOOD COUNT; Value: 5.54; Range: 4.30-6.10; Units: M/mm3; Status: F Test: HEMOGLOBIN; Value: 15.3; Range: 14.0-18.0; Units: g/dl; Status: F Test: HEMATOCRIT; Value: 46.2; Range: 42.0-52.0; Units: %; Status: F Test: MEAN CORPUSCULAR VOLUME; Value: 83.2; Range: 80.0-96.0; Units: fl; Status: F Test: MEAN CORPUSCULAR HEMOGLOBIN; Value: 27.7; Range: 27.0-33.0; Units: pg; Status: F Test: MEAN CORPUSCULAR HGB CONC; Value: 33.2; Range: 32.0-36.5; Units: g/dl; Status: F Test: RED CELL DISTRIBUTION WIDTH; Value: 13.0; Range: 11.5-14.5; Units: %; Status: F Test: PLATELET COUNT, AUTOMATED; Value: 298; Range: 150-450; Units: k/mm3; Status: F Test: NEUTROPHILS %; Value: 61.1; Range: 36.0-66.0; Units: %; Status: F Test: LYMPH %; Value: 31.3; Range: 24.0-44.0; Units: %; Status: F Test: MONO %; Value: 5.7; Range: 0.0-5.0; Abnormal: Above high normal; Units: %; Status: F Test: EOS %; Value: 0.5; Range: 0.0-3.0; Units: %; Status: F Test: BASO %; Value: 0.2; Range: 0.0-1.0; Units: %; Status: F Test: LARGE UNSTAINED CELL %; Value: 1.2; Range: 0.0-4.0; Units: %; Status: F Test: NEUTROPHILS #; Value: 4.9; Range: 1.8-7.7; Units: K/mm3; Status: F Test: LYMPH #; Value: 2.6; Range: 1.5-6.5; Units: K/mm3; Status: F Test: MONO #; Value: 0.5; Range: 0.0-0.8; Units: K/mm3; Status: F Test: EOS #; Value: 0.0; Range: 0.0-0.50; Units: K/mm3; Status: F Test: BASO #; Value: 0.0; Range: 0.0-0.2; Units: K/mm3; Status: F Test: LARGE UNSTAINED CELL #; Value: 0.1; Range: 0.0-0.4; Units: K/mm3; Status: F Lab Order: MED Profile; SPEC'M 12/18/16 11:51 Test: GLUCOSE, FASTING; Value: 80; Range: 70-105; Units: MG/DL; Status: F Test: BLOOD UREA NITROGEN; Value: 10; Range: 7-18; Units: MG/DL; Status: F Test: CREATININE FOR GFR; Value: 1.18; Range: 0.70-1.30; Units: MG/DL; Status: F Test: GLOMERULAR FILTRATION RATE; Value: > 60.0; Range: >60; Status: F Test: SODIUM LEVEL; Value: 144; Range: 136-145; Units: MEQ/L; Status: F Test: POTASSIUM SERUM; Value: 3.9; Range: 3.5-5.1; Units: MEQ/L; Status: F Test: CHLORIDE LEVEL; Value: 108; Range: 98-107; Abnormal: Above high normal; Units: MEQ/L; Status: F Test: CARBON DIOXIDE LEVEL; Value: 27; Range: 21-32; Units: MEQ/L; Status: F Test: ANION GAP; Value: 9; Range: 8-16; Units: MEQ/L; Status: F Test: CALCIUM LEVEL; Value: 9.5; Range: 8.5-10.1; Units: MG/DL; Status: F Test Note: ; Units are mL/min/1.73 m2 Chronic Kidney Disease Staging per NKF: Stage I & II GFR >=60 Normal to Mildly Decreased Stage III GFR 30-59 Moderately Decreased Stage IV GFR 15-29 Severely Decreased Stage V GFR <15 Very Little GFR Left ESRD GFR <15 on TELEPHONE COLLECTOR Lab Order: CIP; SPEC'M 12/18/16 11:51 Test: CPK CREATINE PHOSPHOKINASE; Value: 195; Range: 39-308; Units: U/L; Status: F Test: CK-MB VALUE MASS; Value: 2.0; Range: 0.0-3.6; Units: NG/ML; Status: F Test: MB/CK RELATIVE INDEX; Value: 1.02; Range: < OR =4; Status: F Test Note: ; DIAGNOSIS CRITERIA MMB ng/ml Relative Index (RI) NON-AMI < or = 5 N/A SUAREZ ZONE > 5 < or = 4 AMI > 5 > 4 Lab Order: Troponin; SPEC'M 12/18/16 11:51 Test: TROPONIN I; Value: < 0.02; Range: < 0.10; Units: NG/ML; Status: F Test Note: ; Troponin I Reference Interval for Embedly LOCI: 99th Percentile= 0.00-0.045 ng/ml Risk Stratification: <= 0.10 ng/ml Decreased Risk for Adverse Clinical Events. 0.10-1.50 ng/ml Increased Risk for Adverse Clinical Events. Evaluation of additional criterion and/or repeat testing in 2-6 hours is suggested to rule out myocardial damage. >= 1.50 ng/ml Indicative of Myocardial Injury. 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 14:19 Discharge Assessment: Patient awake and alert. obeys commands, Oriented to person, ead place and time. patient administered narcotics - yes. Pt provided with safe discharge. The following High Risk Discharge criteria are identified: None. Discharged to home ambulatory, with friend. Condition: improved. Discharge instructions given to patient, Instructed on discharge instructions, follow up and referral plans. Demonstrated understanding of instructions, medications, Pt was receptive of discharge instructions/ teaching. No special radiology studies were completed. Property sent home with patient. 14:20 Patient left the ED. ead Signatures: Dispatcher [employer] EDMS Derian Elias MD MD ml Murray, Denise, Boomswing Operator Unit deg Diana Jacques, Reg Reg gb Annalisa ShortRN KEN ck1 Gladis Fitzgerald mt4 Chapis Loevll, CLOTHES WRINGER CLOTHES WRINGER ct3 Rosmery Armenta,RN RN Herbert Lockhart mm15 Adrienne Lawrence, CLOTHES WRINGER CLOTHES WRINGER elp Kasey Terry RN RN ead Redder, Kathie klr Chart Complete MTDD
== END 2016-12-18 14:20 | disposition home or self-care (01) ==
LOC: M ED 11:09
DX: I10 Essential (primary) hypertension (principal); F41.9 Anxiety disorder, unspecified; J45.909 Unspecified asthma, uncomplicated; J20.9 Acute bronchitis, unspecified; Z87.891 Personal history of nicotine dependence; Z79.899 Other long term (current) drug therapy; Z88.0 Allergy status to penicillin; Z88.1 Allergy status to other antibiotic agents; Z88.2 Allergy status to sulfonamides

== ENCOUNTER 2017-02-12 18:15 | Emergency (ER) | payer OTHER ==
[~2017-02-12] VITALS: Ht 177.8 cm; Wt 108.0 kg
[2017-02-12] MEDS ORDERED: LISI10TA4 PO (18:25)
[2017-02-12] MEDS ORDERED: EFFE37.527 PO (18:25)
[2017-02-12] MEDS ORDERED: LORazepam 2 MG/ML VIAL (J2060) IV STA (19:17)
[2017-02-12 19:53] VITALS: BP 160/84
[2017-02-12] MEDS ORDERED: ATIV1TAB10 PO (20:38)
[2017-02-12] MEDS ORDERED: LORazepam 0.5 MG TAB PO ONE (20:45)
--- NOTE | 2017-02-12 21:21 | ECGEPIP ---
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
--- NOTE | 2017-02-13 10:02 | REP ---
AP PORTABLE CHEST: 02/12/2017. CLINICAL HISTORY: Chest pain, 26-year-old male. COMPARISON: Portable chest 12/17/2016, two-view chest 04/23/2016, 02/16/2015. FINDINGS: Lung shel[place] are well inflated. There is no pleural effusion, acute infiltrate, atelectasis or mass. Heart, mediastinal and hilar contours are normal. Airway is intact. There is a very gentle levoconvex curve of the upper thoracic spine. No free air under the diaphragm. IMPRESSION: 1. No acute cardiopulmonary disease. Stable chest. Signed by Daniel Gr MD 02/13/2017 05:10 P
== END 2017-02-12 21:47 | disposition home or self-care (01) ==
LOC: EDBD 18:15 → M ED 19:14
DX: F41.0 Panic disorder [episodic paroxysmal anxiety] (principal); F41.1 Generalized anxiety disorder; I10 Essential (primary) hypertension; Z79.899 Other long term (current) drug therapy; Z88.0 Allergy status to penicillin; Z88.2 Allergy status to sulfonamides
CPT/HCPCS: 71010; 93005; 96374; 99283; J2060

== ENCOUNTER 2017-05-27 21:20 | Emergency (ER) | payer OTHER ==
[~2017-05-27] VITALS: Ht 205.7 cm; Wt 102.5 kg
[~2017-05-27 21:20] MED LIST: ATIV1TAB10 PO; EFFE37.527 PO; LISI10TA4 PO
[2017-05-27] MEDS ORDERED: NORCO, ANEXSIA 5/325MG TABLET (HYDROcodone/ACETAMINOPHEN) PO ONE (22:00)
[2017-05-27] MEDS ORDERED: NORCO 5/325MG TABLET (BULK FOR ED) PO ONE (23:00)
[2017-05-27] MEDS ORDERED: NORCOTAB PO (23:03)
[2017-05-27 23:11] VITALS: BP 132/77
--- NOTE | 2017-05-28 12:54 | REP ---
LEFT KNEE, TWO VIEWS: There is no evidence of an acute fracture, dislocation or intrinsic bone disease. IMPRESSION: No fracture or dislocation. Signed by Mansoor Suarez MD 05/28/2017 07:30 P
== END 2017-05-27 23:30 | disposition home or self-care (01) ==
LOC: EDBD 21:20 → M ED 21:20
DX: M25.562 Pain in left knee (principal); X58.XXXA Exposure to other specified factors, initial encounter; Y93.61 Activity, american tackle football; Y92.830 Public park as the place of occurrence of the external cause; Y99.9 Unspecified external cause status; Z79.899 Other long term (current) drug therapy; Z88.0 Allergy status to penicillin; Z88.2 Allergy status to sulfonamides; Z88.1 Allergy status to other antibiotic agents

== ENCOUNTER → 2019-01-20 | Outpatient (REF) | payer OTHER ==
[~2019-01-20] MED LIST changes: +EFFE37.5 PO; -EFFE37.527 PO; +NORCOTAB PO
== END ==
LOC: M SFHCLERA 14:49
PROVIDERS: ATTEND Nurse Practitioner Family
DX: J02.9 Acute pharyngitis, unspecified (principal)